=== PATIENT | female | born 1980 | race African-American/Black ===

== ENCOUNTER 2017-10-12 17:23 | Emergency (ER) | payer MEDICAID, MEDICARE ==
--- OUTSIDE RECORDS SUMMARY | 2017-10-12 17:54 | XMS REPORT ---
:1980 External Reference #:[id number] Author Organization [facility] Address [address] [place] [address] Phone [phone] Care Team Providers Name Role Phone HCP given Primary Care Physician Unavailable Payers Type Date Identification Numbers Payment Provider Subscriber Medicare Primary Policy Number: [id number] [facility] Cinthia Ramos Services PayID: [id number] [facility] [address] [place] [address] Medigap Part B Policy Number: [id number] Medicaid Cinthia Ramos PayID: [id number] [place] [address] Problems Date Description Provider Status Onset: 02/28/2015 Neck pain Shukri Clemons D.O. Active Onset: 02/28/2015 Neuralgia Shukri Clemons D.O. Active Onset: 07/12/2015 Chronic pain syndrome Iain Carrillo M.D. Active Onset: 07/12/2015 Generalized anxiety disorder Iain Carrillo M.D. Active Onset: 07/12/2015 Restless legs Iain Carrillo M.D. Active Onset: 07/12/2015 Fibromyalgia Iain Carrillo M.D. Active Onset: 08/10/2017 Gastroesophageal reflux disease Iain Carrillo M.D. Active Family History Date Family Member(s) Problem(s) Comments Mother Diabetes, Type II Mother Obesity Mother High Blood Pressure Mother Thyroid Disease pt unsure of specifics Children 8 7 daughters, 1 son Siblings 4 4 sisters Social History Type Date Description Comments Lives With Children 7 children (no other adults in the home exc for her 19yo daughter) Work Status Disability Social Security on SSD "for my injuries and mental health" since her late 20s (~age 26-29). 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 Cigarette Use 05/27/2016 current cigarette smoker ~1ppd Smoking Patient is a current smoker, smokes every day Sun Exposure Uses sunscreen Seat Belt/Car Seat Seat Belt Use - Yes Currently Active Patient is currently sexually active Allergies, Adverse Reactions, Alerts Date Description Reaction Status Severity Comments 02/26/2015 Penicillins active throat swelling 02/26/2015 Naproxen active hives 02/26/2015 Latex active rash 02/26/2015 Adhesives active rash/burn skin 04/08/2015 Shellfish-derived Products active "my throat closes" 07/22/2016 Benzonatate numbs throat active 09/29/2017 Morphine Urticaria active Medications Medication Date Status Form Strength Qnty SIG Indications Ordering Provider Oxymorphone Active Tablets ER 30mg 60tabs 1 by G89.4 Silcoff, HCL ER 017 12HR mouth Iain, every M.D. 12hrs; for pain G89.4 Oxymorphone HCL 09/29/2017 Active Tablets ER 10mg 30tabs 1 tablet G89.4 [place]ff, ER 12HR daily in the Iain, mid M.D. afternoon; for chronic pain G89.4 Benadryl Allergy 09/28/2017 Active Tablets 25mg as directed Unknown as needed Gabapentin 08/10/2017 Active Capsules 100mg 210cap 2 capsules G25.8 Silcoff, s daily in the 1 Iain, M.D. morning and afternoon, 3 at night; for restless legs and anxiety F41.1 Buspirone HCL 06/11/2017 Active Tablets 15mg 90tabs 1 by mouth F41.1 Silcoff, 3x/day for Iain, anxiety M.D. Cetirizine HCL 04/02/2017 Active Tablets 10mg 30tabs 1 by mouth J30.9 Silcoff, every day as Iain, needed for M.D. allergies Ketotifen 04/02/2017 Active Solution 0.025% 5ml 1 drop both H10.13 Silcoff, Fumarate eyes twice a Iain, day as M.D. needed for eye allergies; doses should be spaced by at least 8 hours Escitalopram 10/05/2016 Active Tablets 20mg 30tabs take 1 F34.1 Silcoff , Oxalate tablet by Iain, mouth once M.D. daily for mood F41.1 Nicotine 07/28/2016 Active Gum 4mg 200units chew 1 F17.210 Silcoff, Polacrilex piece every Iain, 1-2hrs for M.D. 6wks then every 2 to 4 hours x3wks then q4-8h x3wks then d/c; use at least 9/d the 1st 6wks Ventolin HFA 07/23/2016 Active Aerosol 108(90 18gm 2 puffs J20.9 Silcoff, Base) q4-6 hours Iain, mcg/Ac as needed M.D. t Albuterol 07/22/2016 Active Nebulizer (2.5mg 90ml 1 unit J20.9 Silcoff, Sulfate /3ML) inhaled Iain, 0.083% four times M.D. a day as needed for cough or shortness of breath R06.2 Famotidine 02/26/2016 Active Tablets 20mg 60tabs 1 by mouth R14.2 SilcoffIain, 2x/day as M.D. needed for acid reflux R12 K21.9 Opana 03/08/2015 Active Tablets 10mg 120tabs 1 by mouth every 6 G89.4 Iain Carrillo, hours as needed M.D. for pain; rx due 09/11/17; Appt Needed Before Next Refill M79.7 Sumatriptan 02/26/2015 Active Tablets 100mg 6tabs take 1/2-1 G43.109 Silcoff, Succinate tablet by Iain, mouth at M.D. first sign of migraine; may repeat in 2 hours if migraine partially relieved; max 3x/wk Cyclobenzaprine 02/25/2015 Active Tablets 10mg 90tabs 1 by mouth G89.4 Silcoff, HCL three times Iain, a day as M.D. needed for muscle spasms. M79.7 Morphine Sulfate ER Hx Tablets ER 60mg 28tabs 1 by mouth every G89.4 Silcoff 017 - 12 hours for , chronic pain; rx Iain 017 due 12/1/17; take M.D. along with a 30mg pill of same medication Morphine Sulfate ER Hx Tablets ER 30mg 28tabs 1 by mouth every G89.4 Silcoff 017 - 12 hours for , chronic pain; rx Juan R Timmons due 09/24/17; take M.D. along with a 60mg pill of same medication Oxymorphone HCL ER Hx Tablets ER 30mg 60tabs 1 by mouth every M79.7 Silcoff 017 - 12HR 12hrs; for pain; , Rx due 09/22/17 Juan R Timmons M.D. G89.4 Buspirone HCL 02/01/2017 - Hx Tablets 10mg 90tabs 1.5 tablets F41.1 Silcoff, 06/11/2017 by mouth Ely Timmons twice a day; for anxiety Prednisone 07/28/2016 - Hx Tablets 50mg 5tabs 1 pill daily J20.9 Silcoff, 08/02/2016 for 5 days, Ely Timmons for cough and wheezing Escitalopram 07/28/2016 - Hx Tablets 10mg 30tabs 1 tablet F34.1 Silcoff , Oxalate 10/05/2016 daily; for Ely Timmons mood F41.1 Day Time Cough 07/23/2016 - Hx Liquid 15mg/15ML Unknown 10/05/2016 Azithromycin 07/23/2016 - Hx Tablets 250mg 6tab 2 tabs by J20 Hektor, 07/28/2016 s mouth daily .9 LARS De Leon x1 day then 1 tab by mouth daily x4 days Guaifenesin DM 07/23/2016 - Hx Tablets 400-20mg 45ta 1 tab po Q6 J20 Hektor, 10/04/2016 bs hours prn .9 LARS De [place] cough Nicoderm CQ 07/23/2016 - Hx Patches 24HR 14mg/24HR 28un 1 patch top F17 Hektor, 07/23/2016 its daily .21 LARS De Leon 0 Nicotine 05/27/2016 - Hx Patches 24HR 21mg/24HR 42un apply 1 F17 Silcoff, 07/23/2016 its patch, change .21 camille Timmons as 0 M.DEstevan directed; use for 6 weeks then change to 14mg strength PT For Right Hip 05/27/2016 - Hx please M25 Silcoff, Pain 10/04/2016 evaluate and .55 sirena Timmons 1 M.D. instruct in hep, modalities prn Buspirone HCL 03/27/2016 - Hx Tablets 7.5mg 60ta take one F41 Silcoff, 02/01/2017 bs tablet by .1 lawanda Timmons twice a M.D. day for anxiety Buspirone HCL 02/26/2016 - Hx Tablets 5mg 90ta 1 by mouth F41 Silcoff, 03/27/2016 bs twice a day .1 Iain, for anxiety; M.D. increase to 1.5 pills 2x/day after 2wks Gabapentin 01/27/2016 - Hx Capsules 100mg 180c 2 by mouth G25 Silcoff, 08/10/2017 aps 3x/day for .81 Iain restless legs Keena.DEstevan and anxiety F41.1 Replacement Pads 01/27/2016 - Hx G89.4 Silcoff, And Leads For 10/04/2016 Ely Timmons TENS Unit Famotidine 01/27/2016 - Hx Tablets 20mg 60tabs 1 by mouth R14.2 Silcoff , 02/26/2016 2x/day for Ely Timmons acid reflux R12 K21.9 Gabapentin 12/17/2015 - Hx Capsules 300mg 90caps 1 pill 3x/day G25.81 Silcoff, 01/27/2016 for anxiety, Ely Timmons restless legs and sleep F41.1 PT For Right 12/17/2015 - Hx evaluate and M25.561 Silcoff, Knee Pain W/ 03/26/2016 Iain pack M.D. Suspected LCL modalities as Sprain needed, instruct in hep Permethrin 08/26/2015 - Hx Cream 5% 120g apply from L29.9 Silcoff, 09/02/2015 m chin to toesIain M.D. leave on 8-10 hours then rinse off. repeat 1wk later Proair HFA 07/26/2015 - Hx Aerosol 108( 8.50 2 puffs every J20.9 Silcoff, 08/25/2015 90Ba 0gm 4 hours as Ely Timmons se) needed for mcg/ cough, Act wheezing Benzonatate 07/26/2015 - Hx Capsules 200m 15ca 1 by mouth J20.9 Silcoff , 08/02/2015 g ps three times a Ely Timmons day as needed for cough Gabapentin 06/04/2015 - Hx Capsules 100m 180c 2 by mouth G25.81 Silcoff , 12/17/2015 g aps three times a Ely Timmons day for anxiety, sleep, restless legs F41.1 Gabapentin 04/30/2015 - Hx Capsules 100mg 90caps 1 tabs by Laracomelissa, 06/04/2015 mouth three Ely Timmons times a day Gabapentin 04/08/2015 - Hx Capsules 300mg 90caps 1 pill 300.0 Gerardo, 04/30/2015 tonight then 0 Ely Timmons 1 pill twice daily for 1 day then 1 pill 3x/day; for anxiety Opana ER 03/08/2015 - Hx Tab ER 12H 10mg 30tabs 1 by mouth M79.7 Gerardo, 09/22/2017 Abuse-Det every day in Ely Timmons mid afternoon; rx due 09/11/17; Appt Needed Before Next Refill G89.4 Opana 02/25/2015 - 03/08/2015 Hx Tablets 10mg 1 tab by mouth four 338.4 Unknown times a day, as needed 729.1 Opana ER 02/25/2015 - Hx Tab ER 12H Abuse-Det 10mg 1 po bid 729.1 Unknown 03/08/2015 338.4 Opana ER 02/25/2015 - Hx Tab ER 12H 30mg 60tabs 1 by mouth M79.7 Gerardo, 09/20/2017 Abuse-Det twice a day Ely Timmons for chronic pain; Appt Needed Before Next Refill G89.4 Abilify 02/25/2015 - 02/25/2015 Hx Tablets 1 by mouth every day for Unknown mood Medications Administered in Office Medication Date Status Form Strength Qnty SIG Indications Ordering Provider Toradol 15MG. Administered Injection Sopchak, 015 Shukri, D.O. SC/Im Administered Injection Sopchak, Injections 015 Shukri, D.O. Immunizations CPT Code Status Date Vaccine Lot # [id number] Given 09/22/2017 MMR Virus Immunization [id number] Given 08/10/2017 Influenza Virus Vaccine, Quadrivalent, Split, [id number] Preservative Free [id number] Given 08/26/2015 Influenza Virus Vaccine, Quadrivalent, Split, [id number] Preservative Free 03245 Given 02/28/2015 Adacel or Boostrix, TDaP [id number] Vital Signs Date Vital Result Comment 09/29/2017 BP Systolic 102 mmHg BP Diastolic 64 mmHg Height 69 inches 5'9" Weight 197.00 lb BMI (Body Mass Index) 29.1 kg/m2 09/22/2017 BP Systolic 110 mmHg BP Diastolic 68 mmHg Weight 200.00 lb with shoes 08/10/2017 BP Systolic 100 mmHg BP Diastolic 60 mmHg Weight 193.00 lb 06/11/2017 BP Systolic 106 mmHg BP Diastolic 60 mmHg Heart Rate 88 /min reg Weight 186.00 lb 04/02/2017 BP Systolic 108 mmHg BP Diastolic 70 mmHg Height 69.75 inches 5'9.75" w/shoes Weight 180.00 lb w/shoes BMI (Body Mass Index) 26.0 kg/m2 02/01/2017 BP Systolic 126 mmHg BP Diastolic 68 mmHg Weight 183.00 lb 12/08/2016 BP Systolic 100 mmHg BP Diastolic 65 mmHg Body Temperature 98.3 F Weight 180.00 lb 10/05/2016 BP Systolic 108 mmHg BP Diastolic 80 mmHg Weight 181.00 lb 07/28/2016 BP Systolic 100 mmHg BP Diastolic 60 mmHg Body Temperature 97.9 F Weight 182.00 lb w/shoes 07/23/2016 BP Systolic 90 mmHg BP Diastolic 72 mmHg Height 69.25 inches 5'9.25" Weight 182.00 lb BMI (Body Mass Index) 26.7 kg/m2 05/27/2016 BP Systolic 118 mmHg BP Diastolic 70 mmHg Weight 181.00 lb 03/27/2016 BP Systolic 100 mmHg BP Diastolic 70 mmHg Weight 178.00 lb 02/26/2016 BP Systolic 100 mmHg BP Diastolic 62 mmHg Weight 177.00 lb with sneakers 01/27/2016 BP Systolic 100 mmHg BP Diastolic 64 mmHg Weight 178.00 lb w/shoes Last Menstrual Period [id number] 12/27/2015 BP Systolic 107 mmHg BP Diastolic 77 mmHg Heart Rate 111 /min Height 68 inches 5'8" Weight 176.00 lb BMI (Body Mass Index) 26.8 kg/m2 12/17/2015 BP Systolic 114 mmHg BP Diastolic 70 mmHg Weight 170.00 lb 10/30/2015 BP Systolic 102 mmHg BP Diastolic 56 mmHg Weight 170.00 lb with shoes 09/25/2015 BP Systolic 108 mmHg BP Diastolic 68 mmHg Weight 168.00 lb w/shoes 08/26/2015 BP Systolic 94 mmHg BP Diastolic 54 mmHg Weight 166.00 lb 07/26/2015 Heart Rate 76 /min reg Respiratory Rate 14 /min not laboured Body Temperature 98.6 F Weight 163.00 lb 07/12/2015 BP Systolic 100 mmHg BP Diastolic 62 mmHg Weight 160.00 lb 07/05/2015 BP Systolic 96 mmHg BP Diastolic 64 mmHg Weight 164.00 lb 06/04/2015 BP Systolic 106 mmHg BP Diastolic 64 mmHg Weight 163.00 lb shoes on 05/07/2015 BP Systolic 100 mmHg BP Diastolic 80 mmHg Height 69.25 inches 5'9.25" with shoes Weight 156.50 lb with shoes BMI (Body Mass Index) 22.9 kg/m2 04/08/2015 BP Systolic 102 mmHg BP Diastolic 78 mmHg Weight 153.00 lb 03/08/2015 BP Systolic 112 mmHg BP Diastolic 70 mmHg 02/28/2015 BP Systolic 126 mmHg BP Diastolic 76 mmHg 02/26/2015 BP Systolic 116 mmHg BP Diastolic 60 mmHg Height 68 inches 5'8" Weight 156.00 lb BMI (Body Mass Index) 23.7 kg/m2 Results Test Date Test Result H/L Range Note Urine Drug Screen Inhouse 04/02/2017 Ua Cocaine - Ua Opiates - Ua Amphetamines - Urine Methanphetamines - Urine Benzodiazepines QN [place] - Urine Oxycodone QL + Laboratory test finding 06/25/2016 Troponin-I < 0.015 ng/mL 1, 2 Laboratory test finding 06/25/2016 Troponin-I < 0.015 ng/mL 1, 3 Urine Drug Screen Inhouse 05/27/2016 Ua Cocaine - Ua Opiates - Ua Amphetamines - Urine Methanphetamines - Urine Benzodiazepines QN [place] - Urine Oxycodone QL + Laboratory test finding 02/26/2016 Cytology SEE RESULT BELOW 4 Human Papilloma Virus Rna Negative Negative 5 Urine Drug Screen Inhouse 01/27/2016 Ua Cocaine - Ua Opiates - Ua Amphetamines - Urine Methanphetamines - Urine Benzodiazepines QN [place] - Urine Oxycodone QL + Urine Drug Screen Inhouse 12/17/2015 Ua Cocaine - Ua Opiates - Ua Amphetamines - Urine Methanphetamines - Urine Benzodiazepines QN [place] - Urine Oxycodone QL - Urine Drug Screen Inhouse 10/30/2015 Ua Cocaine _ Ua Opiates _ Ua Amphetamines _ Urine Methanphetamines _ Urine Benzodiazepines QN [place] _ Urine Oxycodone QL _ Urine Drug Screen Inhouse 09/25/2015 Ua Cocaine - Ua Opiates - Ua Amphetamines - Urine Methanphetamines - Urine Benzodiazepines QN [place] - Urine Oxycodone QL + Urine Drug Screen Inhouse 09/10/2015 Ua Cocaine neg Ua Opiates neg Ua Amphetamines neg Urine Methanphetamines neg Urine Benzodiazepines QN [place] neg Urine Oxycodone QL pos Urine Drug Screen Inhouse 07/12/2015 Ua Cocaine - Ua Opiates - Ua Amphetamines - Urine Methanphetamines - Urine Benzodiazepines QN [place] - Urine Oxycodone QL + Urine Drug Screen Inhouse 07/05/2015 Ua Cocaine - Ua Opiates - Ua Amphetamines - Urine Methanphetamines - Urine Benzodiazepines QN [place] - Urine Oxycodone QL + Urinalysis With Microscopic 06/15/2015 Urine Color YELLOW Yellow Urine Clarity CLEAR Clear Urine Glucose - Dipstick NEGATIVE mg/dL Negative Urine Bilirubin - Dipstick NEGATIVE Negative Urine Ketone NEGATIVE mg/dL Negative Urine Specific [place] 1.010 1.010-1.030 Urine Blood MODERATE High Negative Urine PH 6.0 Low 6.5-7.5 Urine Protein - Dipstick NEGATIVE mg/dL Negative Urine Urobilinogen - Dipstick 0.2 E.U./dL 0.2-1.0 Urine Nitrite - Dipstick NEGATIVE Negative Urine Leuk Esterase NEGATIVE Negative Urine RBC 0-2 rbc/hpf 0-2 Urine WBC NONE SEEN wbc/hpf 0-7 Urine Epithelial Cells FEW NONESEEN/lpf Laboratory test finding 06/15/2015 Urine Screen See Note 6 Drugs Of Abuse-Urine Screen 7 06/15/2015 Amphetamines (Urine) Negative Barbiturates (Urine) Negative Benzodiazepines (Urine) Negative Cannabinoids (Urine) POSITIVE High Cocaine Metabolite (Urine) Negative Methadone (Urine) Negative Opiates (Urine) Negative Urine Cutoffs * 7 Comprehensive Metabolic Panel 06/15/2015 Glucose 90 mg/dL 74-106 BUN 7 mg/dL 7-18 Creatinine 0.7 mg/dL 0.6-1.3 Glom Filtration Rate, Estimate >60 mL/min >60 If >60 mL/min >60 8 BUN/Creat 10.0 ratio Sodium 139 mmol/L 136-145 Potassium 3.5 mmol/L 3.5-5.1 Chloride 106 mmol/L 98-107 Carbon Dioxide 24 mmol/L 21-32 Anion Gap 9 mEq/L 8-16 Calcium 8.6 mg/dL 8.5-10.1 Total Protein 7.4 g/dL 6.4-8.2 Albumin 3.4 g/dL 3.4-5.0 Globulin 4.0 g/dL 1.9-4.3 Alb/Glob 0.9 ratio Bilirubin,Total 0.3 mg/dL 0.2-1.0 Sgot/Ast 8 U/L Low 15-37 9 SGPT/Alt 16 U/L 12-78 Alkaline Phosphatase 53 U/L 45-117 Laboratory test finding 06/15/2015 CK 110 U/L 26-192 Troponin-I < 0.015 ng/mL 10 HCG,Serum (Qualitative) NEGATIVE (Negative) CBC W/Automated Diff 06/15/2015 White Blood Count 8.7 K/uL 3.1-10.7 Red Blood Count 4.49 M/uL 3.90-5.40 Hemoglobin 12.5 gm/dL 11.6-15.8 Hematocrit 37.7 % 36.0-46.1 Mean Cell Volume 84.0 fl 80.9-99.0 Mean Corpuscular HGB 27.8 pg 25.9-32.7 Mean Corpuscular HGB Conc 33.2 g/dL 30.8-34.3 Platelet Count 272 K/uL 155-360 Red Cell Distri Width SD 43.7 fl 3-47 Red Cell Distri Width %CV 14.5 % High 11.7-14.4 Mean Platelet Volume 9.8 fL 8.9-12.4 Neut% 59.8 % 40.4-72.8 Lymph % 31.1 % 17.0-46.1 Storey % 6.1 % 4.3-13.2 Eo% 2.5 % 0.0-6.6 Bas% 0.5 % 0.0-1.1 Neut# 5.17 K/uL 1.0-7.0 Lymph # 2.69 K/uL 1.8-7.0 Storey # 0.53 K/uL 0.3-0.9 Eos # 0.22 K/uL 0.0-0.5 Baso # 0.04 K/uL 0.0-0.1 Protime 06/15/2015 Protime 12.8 seconds 12.1-14.9 Inr 0.9 0.9-1.1 11 Laboratory test finding 06/15/2015 Act Partial Thrombo 28.4 seconds 23.9- 34.3 12 Time Urine Drug Screen Inhouse 06/04/2015 Ua Cocaine - Ua Opiates - Ua Amphetamines - Urine Methanphetamines - Urine Benzodiazepines QN [place] - Urine Oxycodone QL + Urine Drug Screen Inhouse 05/07/2015 Ua Cocaine - Ua Opiates - Ua Amphetamines - Urine Methanphetamines - Urine Benzodiazepines QN [place] - Urine Oxycodone QL + Laboratory test finding 02/26/2015 Erythrocyte Sed Rate 24 mm/Hr High 0- 14 C Reactive Protein 1.06 mg/L < 5.00 13 Comp Metabolic Panel 02/26/2015 Sodium 136 mmol/L 133-145 Potassium 4.3 mmol/L 3.5-5.0 Chloride 107 mmol/L 101-111 Co2 Carbon Dioxide 26 mmol/L 22-32 Anion Gap 3 mmol/L 2-11 Glucose 83 mg/dL 70-100 Blood Urea Nitrogen 9 mg/dL 6-24 Creatinine 0.58 mg/dL 0.51-0.95 BUN/Creatinine Ratio 15.5 8-20 Calcium 8.9 mg/dL 8.6-10.3 Total Protein 6.8 g/dL 6.4-8.9 Albumin 4.1 g/dL 3.2-5.2 Globulin 2.7 g/dL 2-4 Albumin/Globulin Ratio 1.5 1-3 Total Bilirubin 0.40 mg/dL 0.2-1.0 Alkaline Phosphatase 39 U/L 34-104 Alt 6 U/L Low 7-52 Ast 9 U/L Low 13-39 Egfr Non- 117.6 >60 Egfr 151.3 >60 14 Iron & Iron Binding Capacity 02/26/2015 Iron 88 g/dL 50-212 Unsaturated Iron Binding 259 g/dL Total Iron Binding Capacity 347 g/dL 250-450 % Iron Saturation 25 % 15-55 Laboratory test finding 02/26/2015 Ferritin 16.8 ng/mL 11-307 CBC Auto Diff 02/26/2015 White Blood Count 6.6 10^3/uL 4.8-10.8 Red Blood Count 4.66 10^6/uL 4.0-5.4 Hemoglobin 13.4 g/dL 12.0-16.0 Hematocrit 41 % 35-47 Mean Corpuscular Volume 87 fL 80-97 Mean Corpuscular Hemoglobin 29 pg 27-31 Mean Corpuscular HGB Conc 33 g/dL 31-36 Red Cell Distribution Width 14 % 10.5-15 Platelet Count 196 10^3/uL 150-450 Mean Platelet Volume 9 um3 7.4-10.4 Abs Neutrophils 4.0 10^3/uL 1.5-7.7 Abs Lymphocytes 2.1 10^3/uL 1.0-4.8 Abs Monocytes 0.4 10^3/uL 0-0.8 Abs Eosinophils 0.1 10^3/uL 0-0.6 Abs Basophils 0 10^3/uL 0-0.2 Abs Nucleated RBC 0.01 10^3/uL Granulocyte % 60.7 % 38-83 Lymphocyte % 31.1 % 25-47 Monocyte % 5.8 % 1-9 Eosinophil % 2.0 % 0-6 Basophil % 0.4 % 0-2 Nucleated Red Blood Cells % 0.1 Laboratory test finding 02/26/2015 TSH (Thyroid Stimulating 1.33 IU/mL 0.34-5.60 Horm) 1 CP 2 0.0 - 0.045 ng/mL: Normal 0.046 - 0.5 ng/mL: Suggestive 0.6 - 1.5 ng/mL: Consistent 3 0.0 - 0.045 ng/mL: Normal 0.046 - 0.5 ng/mL: Suggestive 0.6 - 1.5 ng/mL: Consistent 4 SEE RESULT BELOW Name: CINTHIA RAMOS : [address]: Iain Carrillo MD Acct: [id number] Unit: [id number] AGE: 35 Location: [facility] Re02/26/16 SEX: F Status: REG REF SPEC: [id number] YULIA: 02/26/16-[address]: Iain Carrillo MD REQ: [id number] RECD: 02/26/16 STATUS: SOUT _ ORDERED: IMAGE ANALYSIS, HPV/Thin Prep COMMENTS: [id number] FINAL DIAGNOSIS Negative for Intraepithelial lesion or Malignancy A. Ectocervical/Endocervical Specimen Adequacy: Satisfactory of evaluation Transformation zone component identified Patient Information: HPV: High risk HPV RNA testing regardless of pap results. Actual Specimen Date: 02/26/16 ?: N Post Menopausal?: N Hysterectomy?: N Date Time Test Result Flag (u) Normal Range 02/26/16 1353 HPV RNA Negative Negative The high-risk HPV types detected by the assay include: 16, 18, 31, 33, 35, 39, 45, 51, 52, 56, 58, 59, 66, and 68. Signed (signature on file) FLORY Escalera(ASCP) 02/26 1502 This Pap test was evaluated with the assistance of the SavorPrep Test Imaging System. Due to cytologic findings at the gas usage meter clerk microscope, comprehensive manual rescreening by a Dictating Transcribing Machine Servicer may be required. The Pap Smear is a screening test designed to aid in the detection of premalignant and malignant conditions of the uterine cervix. It is not a diagnostic procedure and should not be used as the sole means of detecting cervical cancer. Both false- positive and false- negative reports do occur. Depending on your risk status, a Pap smear should be obtained and evaluated every 1-3 years. END OF REPORT * ML=Testing performed at Main Lab DEPARTMENT OF PATHOLOGY, [address] [place] [address] Armando Roa M.D. Director [facility] # [id number] 5 The high-risk HPV types detected by the assay include: 16, 18, 31, 33, 35, 39, 45, 51, 52, 56, 58, 59, 66, and 68. 6 06/15/15 LAB.[facility] Deleted by [facility] 7 URINE SPECIMENS ARE SCREENED AT THE LISTED CUTOFFS DRUG CLASS INITIAL TEST LEVEL Amphetamines 1000 ng/mL Barbiturates 200 ng/mL Benzodiazepines 200 ng/mL Cannabinoids 50 ng/mL Cocaine Metabolite 300 ng/mL Methadone 300 ng/mL Opiates 300 ng/mL Any POSITIVE findings are UNCONFIRMED. Confirmatory testing is suggested if findings are unexpected. Please contact laboratory if confirmatory testing is desired. SPECIMENS ARE HELD FOR 72 HOURS. 8 Note: Persistent reduction for 3 months or more in an eGFR <60 mL/min/1.73 m2 defines CKD. Patients with eGFR values >/=60 mL/min/1.73 m2 may also have CKD if evidence of persistent proteinuria is present. The original MDRD equation for estimated GFR is not valid for patients less than 18 years of age. Additional information may be found at www.kdoqi.org. 9 Values below the stated reference ranges of AST and ALT can be seen in normal populations. Clinical correlation is suggested. 10 0.0 - 0.045 ng/mL: Normal 0.046 - 0.5 ng/mL: Suggestive 0.6 - 1.5 ng/mL: Consistent 11 THERAPEUTIC INR RANGE: 2.0 - 3.0 DVT, Pulmonary embolus, prophylaxis against venous thrombosis or systemic embolization in high risk patients. 2.5 - 3.5 Mechanical heart valves 12 Is patient on anticoagulants? Coumadin QUERY: Anticoagulant Therapy? QUERY: Date of Last Dose: QUERY: Time of Last Dose: 13 Acute inflammation: >10.00 14 Because ethnic data is not always readily available, this report includes an eGFR for both -Americans and non- Americans. The National Kidney Disease Education Program (NKDEP) does not endorse the use of the MDRD equation for patients that are not between the ages of 18 and 70, are , have extremes of body size, muscle mass, or nutritional status, or are non- or non-. According to the National Kidney Foundation, irrespective of diagnosis, the stage of the disease is based on the level of kidney function: Stage Description GFR(mL/min/1.73 m(2)) 1 Kidney damage with normal or decreased GFR 90 2 Kidney damage with mild decrease in GFR 60-89 3 Moderate decrease in GFR 30-59 4 Severe decrease in GFR 15-29 5 Kidney failure <15 (or dialysis) Procedures Date CPT Code Description Status 02/28/2015 20408 SC/Im Injections Completed Encounters Type Date Location Provider CPT E/M Dx Office Visit 09/29/2017 10:15a Main Office Iain Carrillo M.D. 15321 G89.4 Z79.891 L50.8 T40.2x5A Office Visit 09/22/2017 3:30p Main Office Iain Carrillo M.D. 93149 G89.4 Z79.891 M79.7 Z23 Z71.89 Office Visit 08/10/2017 4:45p Main Office Iain Carrillo M.D. 50278 G89.4 Z79.891 M79.7 F41.1 F34.1 G25.81 L81.9 K21.9 Z23 Office Visit 06/11/2017 2:00p Main Office Iain Carrillo M.D. 48285 G89.4 Z79.891 M79.7 F41.1 F34.1 Office Visit 04/02/2017 10:15a Main Office Iain Carrillo M.D. 12541 G89.4 Z79.891 M79.7 F41.1 F34.1 G25.81 J30.9 H10.13 Office Visit 02/01/2017 2:30p Main Office Iain Carrillo M.D. 90828 G89.4 Z79.891 M79.7 F41.1 F34.1 G25.81 Office Visit 12/08/2016 1:30p Main Office Iain Carrillo M.D. 86149 G89.4 F41.1 F34.1 M79.7 Z79.891 G25.81 A09 L65.9 Office Visit 10/05/2016 11:15a Main Office Iain Carrillo M.D. 95541 F34.1 F41.1 G89.4 M79.7 Z79.891 Office Visit 07/28/2016 9:45a Main Office Iain Carrillo M.D. 58479 L29.0 G89.4 M79.7 G25.81 J20.9 R06.2 F34.1 F41.1 F17.210 Office Visit 07/23/2016 1:15p [place] [address] R06.2 F17.210 J20.9 Office Visit 05/27/2016 10:15a Main Office Iain Carrillo M.D. 78446 G89.4 M25.551 G25.81 M79.7 G47.00 Z79.891 F17.210 Z71.6 Office Visit 03/27/2016 2:30p Main Office Iain Carrillo M.D. 06587 G89.4 M79.7 G25.81 F41.1 G47.00 Z79.891 Office Visit 02/26/2016 10:15a Main Office Iain Carrillo M.D. 40609 G89.4 M79.7 G25.81 F41.1 R53.83 G47.00 K21.9 Z79.891 Z01.419 Z12.4 Office Visit 01/27/2016 10:45a Main Office Iain Carrillo M.D. 28200 G89.4 M79.7 G25.81 F41.1 R53.83 R14.2 R12 M25.561 Z79.891 Office Visit 12/17/2015 8:45a Main Office Iain Carrillo M.D. 98547 G89.4 M25.561 S83.421A M79.7 G25.81 F41.1 Office Visit 10/30/2015 4:15p Main Office Iain Carrillo M.D. 59097 G89.4 M79.7 G25.81 F41.1 H53.8 Office Visit 09/25/2015 11:30a Main Office Iain Carrillo M.D. 94914 G89.4 M79.7 G25.81 F41.1 Z79.891 Office Visit 08/26/2015 2:30p Main Office Iain Carrillo M.D. 13440 G89.4 Z79.891 F41.1 G25.81 M79.7 L29.9 Z23 Z41.8 Office Visit 07/26/2015 10:30a Main Office Iain Carrillo M.D. 40518 G89.4 Z79.891 F41.1 G25.81 M79.7 J20.9 Office Visit 07/12/2015 11:15a Main Office Iain Carrillo M.D. 56301 G89.4 Z79.891 F41.1 G25.81 M79.7 Office Visit 07/05/2015 2:30p Main Office aIin Carrillo M.D. 11778 G89.4 Z79.891 Office Visit 06/04/2015 11:15a Main Office Iain Carrillo M.D. 50019 338.4 V58.69 346.00 742.9 Office Visit 05/07/2015 11:30a Main Office Iain Carrillo M.D. 89651 338.4 784.2 709.9 346.00 V58.69 Office Visit 04/08/2015 1:15p Main Office Iain Carrillo M.D. 51369 338.4 729.1 719.46 346.00 300.00 Office Visit 03/08/2015 9:30a Main Office Iain Carrillo M.D. 36737 729.1 338.4 723.1 719.46 Office Visit 02/28/2015 9:30a Main Office Shukri Clemons D.O. 65149 723.1 729.1 729.2 v06.1 v07.2 728.85 Office Visit 02/26/2015 2:00p Main Office Iain Carrillo M.D. 76038 338.4 729.1 346.00 246.9 333.94 729.2 Plan of Care Future Appointment(s):10/20/2017 1:30 pm - Nurse's Schedule at Main Agjnnc4310/20 1:30 pm - Iain Carrillo M.D. at Main Clfgsv0310/08/2017 1:30 pm - Iain Carrillo M.D. at Main Tcbigq3310/05/2017 2:30 pm - Iain Carrillo M.D. at Main Cytqkb4709/29/2017 - Iain Carrillo M.D.G89.4 Chronic pain syndromeNew Medication:Oxymorphone HCL ER 30 mgOxymorphone HCL ER 10 mgComments:She is intolerant to the only covered long acting opioid on her formulary. Will therefore request PAfor oxymorphone wc worked well for her in the past and was well tolerated.I counted her morphine tabs. She filled both Rxs on 09/24 (day she started them). Has 18 tabs left of the 60mg pills and 19 of the 30mg pills. She is going to continue to take morphine while awaiting PA for oxymorphone, will continue Benadryl along w/ it to try and control the adverse effects. 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
--- OUTSIDE RECORDS SUMMARY | 2017-10-12 17:56 | XMS REPORT ---
:1980 External Reference #:[id number] Author Organization [facility] Address [address] [place] [address] Phone [phone] Care Team Providers Name Role Phone HCP given Primary Care Physician Unavailable Payers Type Date Identification Numbers Payment Provider Subscriber Medicare Primary Policy Number: [id number] [facility] Margaret Ramos Services PayID: [id number] [facility] [address] [place] [address] Medigap Part B Policy Number: [id number] Medicaid Margaret Ramos PayID: [id number] [address] [place] [address] Problems Date Description Provider Status Onset: 02/28/2015 [...] (~age 28-29). 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 chronic pain; rx due 09/24/17; take along with a 30mg pill of same medication Morphine 09/22/ Active Tablets ER 30mg 28tabs 1 by mouth G89.4 Silcoff, Sulfate ER 2016 every 12 Iain, hours for M.D. chronic pain; rx due 09/24/17; take along with a 60mg pill of same medication Gabapentin 08/10/ Active Capsules 100mg 210cap 2 capsules G25.81 Silcoff, 2017 s daily in the Iain, morning and M.D. afternoon, 3 at night; for restless legs [...] Tablets 20mg 60tabs 1 by mouth R14.2 Silcoff, Iain, 2x/day as M.D. needed for acid reflux [...] as M.D. needed for muscle spasms. M79.7 Oxymorphone HCL ER Hx Tablets ER 12HR 30mg 60tabs 1 by mouth M79.7 Silcoff, 7 - every 12hrs; Iain for pain; Rx M.D. 7 due 09/22/17 G89.4 Buspirone HCL 02/01/2017 - Hx Tablets [...] patch, change .21 camille Timmons as 0 M.D. directed; use for 6 weeks then change to 14mg strength PT For Right Hip 05/27/2016 - Hx please M25 Silcoff, Pain 10/04/2016 evaluate and .55 Iain treat, 1 M.DEstevan instruct in hep, modalities prn Buspirone HCL 03/27/2016 - Hx Tablets 7.5mg 60ta take one F41 Silcoff, 02/01/2017 bs tablet by .1 lawanda Timmons twice a M.D. day for anxiety Buspirone HCL 02/26/2016 - Hx Tablets 5mg 90ta 1 by mouth F41 Silcoff, 03/27/2016 bs twice a day .1 Iain for anxiety; M.D. increase to 1.5 pills 2x/day after 2wks Gabapentin 01/27/2016 - Hx Capsules 100mg 180c 2 by mouth G25 Silcoff, 08/10/2017 aps 3x/day for .81 sloane Timmons M.D. and anxiety F41.1 Replacement Pads 01/27/2016 - [...] and M25.561 Silcoff, Knee Pain W/ 03/26/2016 treatIain M.D. Suspected LCL modalities as Sprain needed, [...] Hx Capsules 100mg 90caps 1 tabs by Silcoff, 06/04/2015 mouth three Ely Timmons times a day Gabapentin 04/08/2015 - Hx Capsules 300mg 90caps 1 pill 300.0 Silcoff, 04/30/2015 tonight then 0 Ely Timmons 1 pill twice daily for 1 day then 1 pill 3x/day; for anxiety Opana ER 03/08/2015 - Hx Tab ER 12H 10mg 30tabs 1 by mouth M79.7 Silcoff, 09/22/2017 Abuse-Det every day in Ely Timmons [...] 12H 30mg 60tabs 1 by mouth M79.7 Laracomelissa, 09/20/2017 Abuse-Det twice a day Ely Timmons [...] CPT Code Status Date Vaccine Lot # [id number] Given 09/22/2017 MMR Virus Immunization [id number] Given 08/10/2017 Influenza Virus Vaccine, Quadrivalent, Split, [id number] Preservative Free 02888 Given 08/26/2015 Influenza Virus Vaccine, Quadrivalent, Split, [id number] Preservative Free [id number] Given 02/28/2015 Adacel or Boostrix, TDaP [id number] Vital Signs Date Vital Result Comment 09/22/2017 BP Systolic 110 mmHg BP Diastolic [...] Weight 178.00 lb w/shoes Last Menstrual Period [id number] 12/27/2015 BP Systolic 107 mmHg BP Diastolic [...] - Urine Methanphetamines - Urine Benzodiazepines QN [place] - Urine Oxycodone QL + Laboratory test finding 06/25/2016 Troponin-I < 0.015 ng/mL 1, 2 Laboratory test finding 06/25/2016 Troponin-I < 0.015 ng/mL 1, 3 Urine Drug Screen Inhouse 05/27/2016 Ua Cocaine - Ua Opiates - Ua Amphetamines - Urine Methanphetamines - Urine Benzodiazepines QN [place] - Urine Oxycodone QL + Laboratory test finding 02/26/2016 Cytology SEE RESULT BELOW 4 Human Papilloma Virus Rna Negative Negative 5 Urine Drug Screen Inhouse 01/27/2016 Ua Cocaine - Ua Opiates - Ua Amphetamines - Urine Methanphetamines - Urine Benzodiazepines QN [place] - Urine Oxycodone QL + Urine Drug Screen Inhouse 12/17/2015 Ua Cocaine - Ua Opiates - Ua Amphetamines - Urine Methanphetamines - Urine Benzodiazepines QN [place] - Urine Oxycodone QL - Urine Drug Screen Inhouse 10/30/2015 Ua Cocaine _ Ua Opiates _ Ua Amphetamines _ Urine Methanphetamines _ Urine Benzodiazepines QN [place] _ Urine Oxycodone QL _ Urine Drug Screen Inhouse 09/25/2015 Ua Cocaine - Ua Opiates - Ua Amphetamines - Urine Methanphetamines - Urine Benzodiazepines QN [place] - Urine Oxycodone QL + Urine Drug Screen Inhouse 09/10/2015 Ua Cocaine neg Ua Opiates neg Ua Amphetamines neg Urine Methanphetamines neg Urine Benzodiazepines QN [place] neg Urine Oxycodone QL pos Urine Drug Screen Inhouse 07/12/2015 Ua Cocaine - Ua Opiates - Ua Amphetamines - Urine Methanphetamines - Urine Benzodiazepines QN [place] - Urine Oxycodone QL + Urine Drug Screen Inhouse 07/05/2015 Ua Cocaine - Ua Opiates - Ua Amphetamines - Urine Methanphetamines - Urine Benzodiazepines QN [place] - Urine Oxycodone QL + Urinalysis With Microscopic 06/15/2015 Urine Color YELLOW Yellow Urine Clarity CLEAR Clear Urine Glucose - Dipstick NEGATIVE mg/dL Negative Urine Bilirubin - Dipstick NEGATIVE Negative Urine Ketone NEGATIVE mg/dL Negative Urine Specific [place] 1.010 1.010-1.030 Urine Blood MODERATE High Negative [...] % 40.4-72.8 Lymph % 31.1 % 17.0-46.1 [place] % 6.1 % 4.3-13.2 Eo% 2.5 % 0.0-6.6 Bas% 0.5 % 0.0-1.1 Neut# 5.17 K/uL 1.0-7.0 Lymph # 2.69 K/uL 1.8-7.0 [place] # 0.53 K/uL 0.3-0.9 Eos # 0.22 K/uL 0.0-0.5 Baso # 0.04 K/uL 0.0-0.1 Protime 06/15/2015 Protime 12.8 seconds 12.1-14.9 Inr 0.9 0.9-1.1 11 Laboratory test finding 06/15/2015 Act Partial Thrombo 28.4 seconds 23.9- 34.3 12 Time Urine Drug Screen Inhouse 06/04/2015 Ua Cocaine - Ua Opiates - Ua Amphetamines - Urine Methanphetamines - Urine Benzodiazepines QN [place] - Urine Oxycodone QL + Urine Drug Screen Inhouse 05/07/2015 Ua Cocaine - Ua Opiates - Ua Amphetamines - Urine Methanphetamines - Urine Benzodiazepines QN [place] - Urine Oxycodone QL + Laboratory test [...] ng/mL: Consistent 4 SEE RESULT BELOW Name: MARGARET RAMOS : [address]: Iain Carrillo MD Acct: [id number] Unit: [id number] AGE: 35 Location: [facility] Re02/26/16 SEX: F Status: REG REF SPEC: [id number] YULIA: 02/26/16-[address]: Iain Carrillo MD REQ: [id number] RECD: 02/26/167545 STATUS: SOUT _ ORDERED: IMAGE ANALYSIS, HPV/Thin Prep COMMENTS: [id number] FINAL DIAGNOSIS Negative for Intraepithelial lesion or [...] was evaluated with the assistance of the ThinPrep Test Imaging System. Due to cytologic findings at the maintenance department manager microscope, comprehensive manual rescreening by a Transit Manager may be required. The Pap Smear is [...] performed at Main Lab DEPARTMENT OF PATHOLOGY, [address] [place] [address] Armando Roa M.D. Director [facility] # [id number] 5 The high-risk HPV types detected by the assay include: 16, 18, 31, 33, 35, 39, 45, 51, 52, 56, 58, 59, 66, and 68. 6 06/15/15 [facility] Deleted by [facility] 7 URINE SPECIMENS ARE SCREENED AT THE [...] Procedures Date CPT Code Description Status 02/28/2015 88480 SC/Im Injections Completed Encounters Type Date Location Provider CPT E/M Dx Office Visit 09/22/2017 3:30p Main Office Iain Carrillo M.D. 05680 G89.4 Z79.891 M79.7 Z23 Office Visit 08/10/2017 4:45p Main Office Iain Carrillo M.D. 06288 G89.4 Z79.891 M79.7 F41.1 F34.1 G25.81 L81.9 K21.9 Z23 Office Visit 06/11/2017 2:00p Main Office Iain Carrillo M.D. 98499 G89.4 Z79.891 M79.7 F41.1 F34.1 Office Visit 04/02/2017 10:15a Main Office Iain Carrillo M.D. 65983 G89.4 Z79.891 M79.7 F41.1 F34.1 G25.81 J30.9 H10.13 Office Visit 02/01/2017 2:30p Main Office Iain Carrillo M.D. 44458 G89.4 Z79.891 M79.7 F41.1 F34.1 G25.81 Office Visit 12/08/2016 1:30p Main Office Iain Carrillo M.D. 40666 G89.4 F41.1 F34.1 M79.7 Z79.891 G25.81 A09 L65.9 Office Visit 10/05/2016 11:15a Main Office Iain Carrillo M.D. 74979 F34.1 F41.1 G89.4 M79.7 Z79.891 Office Visit 07/28/2016 9:45a Main Office Iain Carrillo M.D. 02726 L29.0 G89.4 M79.7 G25.81 J20.9 R06.2 F34.1 F41.1 F17.210 Office Visit 07/23/2016 1:15p [place] [address] R06.2 F17.210 J20.9 Office Visit 05/27/2016 10:15a Main Office Iain Carrillo M.D. 67810 G89.4 M25.551 G25.81 M79.7 G47.00 Z79.891 F17.210 Z71.6 Office Visit 03/27/2016 2:30p Main Office Iain Carrillo M.D. 49347 G89.4 M79.7 G25.81 F41.1 G47.00 Z79.891 Office Visit 02/26/2016 10:15a Main Office Iain Carrillo M.D. 01504 G89.4 M79.7 G25.81 F41.1 R53.83 G47.00 K21.9 Z79.891 Z01.419 Z12.4 Office Visit 01/27/2016 10:45a Main Office Iain Carrillo M.D. 79695 G89.4 M79.7 G25.81 F41.1 R53.83 R14.2 R12 M25.561 Z79.891 Office Visit 12/17/2015 8:45a Main Office Iain Carrillo M.D. 69373 G89.4 M25.561 S83.421A M79.7 G25.81 F41.1 Office Visit 10/30/2015 4:15p Main Office Iain Carrillo M.D. 31491 G89.4 M79.7 G25.81 F41.1 H53.8 Office Visit 09/25/2015 11:30a Main Office Iain Carrillo M.D. 18203 G89.4 M79.7 G25.81 F41.1 Z79.891 Office Visit 08/26/2015 2:30p Main Office Iain Carrillo M.D. 42372 G89.4 Z79.891 F41.1 G25.81 M79.7 L29.9 Z23 Z41.8 Office Visit 07/26/2015 10:30a Main Office Iain Carrillo M.D. 01297 G89.4 Z79.891 F41.1 G25.81 M79.7 J20.9 Office Visit 07/12/2015 11:15a Main Office Iain Carrillo M.D. 62977 G89.4 Z79.891 F41.1 G25.81 M79.7 Office Visit 07/05/2015 2:30p Main Office Iain Carrillo M.D. 94799 G89.4 Z79.891 Office Visit 06/04/2015 11:15a Main Office Iain Carrillo M.D. 18787 338.4 V58.69 346.00 742.9 Office Visit 05/07/2015 11:30a Main Office Iain Carrillo M.D. 61787 338.4 784.2 709.9 346.00 V58.69 Office Visit 04/08/2015 1:15p Main Office Iain Carrillo M.D. 60190 338.4 729.1 719.46 346.00 300.00 Office Visit 03/08/2015 9:30a Main Office Iain Carrillo M.D. 47637 729.1 338.4 723.1 719.46 Office Visit 02/28/2015 9:30a Main Office Shukri Clemons D.O. 83676 723.1 729.1 729.2 v06.1 v07.2 728.85 Office Visit 02/26/2015 2:00p Main Office Iain Carrillo M.D. 38829 338.4 729.1 346.00 246.9 333.94 729.2 Plan of Care Future Appointment(s):10/20/2017 1:30 pm - Nurse's Schedule at Main Pqnsqk7110/20 1:30 pm - Iain Carrillo M.D. at Main Sckrbe4610/08/2017 1:30 pm - Iain Carrillo M.D. at Main Wvkdks6910/05/2017 2:30 pm - Iain Carrillo M.D. at Main Hfkrvk2309/22/2017 - Iain Carrillo M.D.G89.4 Chronic pain syndromeNew Medication:Morphine Sulfate ER 60 mgMorphine Sulfate ER 30 mgComments:Based on her insurance formulary, it looks like she really has only one option for using a [place] opioid- morphine, so we will transition her to it using an approximately equianalgesic dose slightly reduced for cross tolerance. She has enough of her short acting Opana for at least 2 weeks, so will hold off on changing this until next ov.Follow up:RTO 2 weeks. As we discussed, continue using Opana ER/ Oxymorphone ER until you run out then switch top the morphine tablets. Continue using the short acting Opana 10mg pills for breakthrough pain as needed.Z79.891 correction (current) use of opiate clicztzzuT07.7 JjgqwflrozgdZ08 Encounter for immunizationComments:Needs form completed for school re MMR vaccine. She has no record of prior MMR. Discussed options oftesting vs vaccination. She prefers just getting vaccinated (again). Understands need for 2 doses (at least 4 weeks apart).
[2017-10-12] MEDS ORDERED: NS 0.9% 1000 ML* 1,000 ML IV ONE (21:19)
[2017-10-12] MEDS ORDERED: Iohexol 350* (CONTRAST) 500 ML MDV IV ONE (21:22)
[2017-10-12 23:07] VITALS: BP 114/72
--- NOTE | 2017-10-13 04:30 | ED ---
Nicole Navarro Emily, scribed for Ashley Galvez MD on 10/12/17 at 2046 . HPI Chest Pain - HPI Summary HPI Summary: This patient is a 37 year old F presenting to [facility] with a chief complaint of intermittent L sided chest pain radiating to L arm that began 3 days ago. The patient rates the pain 9/10 in severity. Symptoms aggravated by nothing. Symptoms alleviated by nothing. Patient reports SOB, headache, back pain ( chronic), and bruising. Patient denies cough, fever, double vision, blurred vision, ear ache, sore throat, abd pain, dysuria, leg swelling, rashes, hematuria, and hematochezia. Pt denies symptoms being similar to chronic pain. Pt denies known . - History of Current Complaint Chief Complaint: EDChestPainROMI Time Seen by Provider: 10/12/17 18:16 Hx Obtained From: Patient Hx Last Menstrual Period: 08/08/2017 Onset/Duration: Started Days Ago, Still Present Timing: Intermittent Initial Severity: Severe Current Severity: Severe Pain Intensity: 9 Pain Scale Used: 0-10 Numeric Chest Pain Location: Left Lateral Chest Pain Radiates: Yes Chest Pain Radiates To:: Arm Aggravating Factor(s): Nothing Alleviating Factor(s): Nothing Associated Signs and Symptoms: Positive: Other: - Positive SOB, headache, back pain (chronic), and bruising. Negative cough, fever, double vision, blurred vision, ear ache, sore throat, abd pain, dysuria, leg swelling, rashes, hematuria, and hematochezia - Allergy/Home Medications Allergies/Adverse Reactions: Allergies Allergy/AdvReac Type Severity Reaction Status Date / Time Aspirin Allergy Hives Verified 10/12/17 17:31 Bee Venom Allergy Anaphylatic Verified 10/12/17 17:31 Shock Codeine Allergy Swelling Verified 10/12/17 17:31 Milk Protein Extract Allergy Vomiting Verified 10/12/17 17:31 Naproxen Allergy Unknown Verified 10/12/17 17:31 Reaction Details Penicillins Allergy Swelling Verified 10/12/17 17:31 Shellfish Allergy Allergy Anaphylatic Verified 10/12/17 17:31 Shock PMH/Surg Hx/FS Hx/Imm Hx Previously Healthy: No Endocrine/Hematology History: Reports: Other Endocrine/Hematological Disorders - Fibromyalgia Musculoskeletal History: Reports: Hx Back Problems Infectious Disease History: No Infectious Disease History: Denies: Traveled Outside the [place] in Last 30 Days - Family History Known Family History: Positive: Cardiac Disease, Hypertension, Diabetes - Social History Occupation: Disabled Lives: With Family Alcohol Use: None Substance Use Type: Reports: None Smoking Status (MU): Never Smoked Tobacco Review of Systems Negative: Fever Negative: Photophobia, Blurred Vision Negative: Sore Throat, Ear Ache Positive: Chest Pain Positive: Shortness Of Breath. Negative: Cough Positive: Other - Negative hematochezia. Negative: Abdominal Pain Negative: dysuria, hematuria Positive: Other - Positive back pain Positive: Bruising. Negative: Rash Positive: Headache All Other Systems Reviewed And Are Negative: No Physical Exam - Summary Physical Exam Summary: Appearance: Alert, conversive, nontoxic appearing Skin: Warm, dry, no mottling, no rashes, no contusions. Little irritation to L chin, slightly tender to palpation. HEENT: EOMI, PERRL, moist mucous membranes Neck: No masses on the neck, supple Respiratory: Clear to auscultation, breath sounds present, no rales, no rhonchi , no wheezes Cardiovascular: RRR, pulses are symmetrical in both lower and upper extremities Abdomen: Soft, non-tender Bowel Sounds: Present Musculoskeletal: No CVA tenderness, no obvious deformity, moving all extremities in a grossly normal manner. Diffuse tenderness Neurological: A&Ox3, CN II-XII Intact, moving all extremities symmetrically Psychiatric: Normal affect and mood Triage Information Reviewed: Yes Vital Signs On Initial Exam: Initial Vitals Temp Pulse Resp BP Pulse Ox 97.2 F 106 16 113/79 99 10/12/17 17:25 10/12/17 17:25 10/12/17 17:25 10/12/17 17:25 10/12/17 17:25 Vital Signs Reviewed: Yes Diagnostics - Vital Signs Vital Signs Temp Pulse Resp BP Pulse Ox 10/12/17 19:30 101 14 110/70 99 10/12/17 19:24 102 119/83 100 10/12/17 19:23 104 100 10/12/17 18:49 98.2 F 100 17 106/70 97 10/12/17 17:25 97.2 F 106 16 113/79 99 - Laboratory Lab Statement: Any lab studies that have been ordered have been reviewed, and results considered in the medical decision making process. - CT CTA Chest CT Interpretation Completed By: Radiologist - CTA chest CT reveals, per radiologist, there is no evidence of pulmonary embolism. The thoracic aorta is normal in course and caliber without dissection. The heart is enlarged. There is no pericardial effusion. There are a few enlarged right hilar lymph nodes measuring up to 1.1 cm in short axis. Dr. Galvez has reviewed this radiology report. - EKG 1737 Cardiac Rate: Tachycardia EKG Rhythm: Sinus Rhythm - 105 BPM EKG Interpretation: Nml QRS and QTC. Non-specific STT waves in inferior leads Re-Evaluation - Re-Evaluation First Eval Re-Evaluation Time: 22:40 Change: Unchanged Comment: Discussed CT results in detail with pt. Chest Pain Course/Dx - Course Assessment/Plan: This patient is a 37 year old F presenting to [facility] with a chief complaint of intermittent L sided chest pain radiating to L arm that began 3 days ago. Physical Exam Findings. Little irritation to left chin, slightly tender to palpation. Diffuse tenderness. An EKG taken at 1737 reveals sinus tachycardia at 105 BPM with normal QRS and QTC with nonspecific STT waves in inferior leads. CTA chest CT reveals, per radiologist, there is no evidence of pulmonary embolism. The thoracic aorta is normal in course and caliber without dissection. The heart is enlarged. There is no pericardial effusion. There are a few enlarged right hilar lymph nodes measuring up to 1.1 cm in short. Discussed CT results in detail with pt. Discussed concern that pt is a heavy smoker and there were multiple nodules in scan. Suggested repeat CT due to suspicion for cancer with follow up with PCP. Pt became very upset that the exact etiology of CP was unknown and requested to leave the hospital. In the ED course the patient was given contrast and fluids. Patient will be discharged with PCP. The patient is agreeable with this plan. - Diagnoses Provider Diagnoses: Chest pain, Lung nodules, Nicotine dependence Discharge - Discharge Plan Condition: Stable Disposition: HOME Patient Education Materials: Chest Pain (ED), How to Stop Smoking (ED), Pulmonary Nodules (ED) Referrals: Iain Carrillo MD [Primary Care Provider] - Additional Instructions: Please discuss with your doctor ways you can stop smoking. Please follow up with your doctor this week. Please show your doctor the CT report of your lungs and discuss the multiple lung nodules. You will need a repeat CT chest in 6 months. Continue to take all medications as previously instructed. Return if worse or any new symptoms. The documentation as recorded by the Nicole brody Emily accurately reflects the service I personally performed and the decisions made by me, Ashley Galvez MD.
--- NOTE | 2017-10-13 06:30 | RAD ---
INDICATION: Chest pain and elevated d-dimer COMPARISON: None TECHNIQUE: Axial source images were acquired following the administration of 76 mL Omnipaque [address] angiographic technique. Coronal and sagittal reconstructed images were constructed and reviewed. FINDINGS: There there are no filling defects in the pulmonary arteries to indicate acute pulmonary embolic disease. Right middle lobe nodule measuring 9 x 5 mm (image 31/61). Left lower lobe nodule measuring 4 mm (image 32). Right middle lobe nodule measuring 4mm (image 26). The heart is normal in size. There is no evidence of pericardial effusion. There is no evidence of aortic aneurysm or dissection. There is a top normal right hilar lymph node measuring 1.1 cm in short axis (image 129). The visualized osseous structures appear normal. Limited views of the upper abdomen show no abnormalities. IMPRESSION: 1. No CT of evidence of pulmonary embolism. 2. Pulmonary nodules measuring up to 7mm in average dimension that can be followed according to the Fleischner Society Criteria. THE RECOMMENDATIONS FOR FOLLOWUP AND MANAGEMENT OF INCIDENTALLY DETECTED MULTIPLE PULMONARY NODULES GREATER THAN OR EQUAL TO 6 MM BUT LESS THAN OR EQUAL TO 8 MM IN SIZE, IN A PATIENT WITHOUT A HISTORY OF MALIGNANCY, INCLUDE FOLLOWUP CT IN 3-6 MONTHS, THEN CONSIDER AGAIN AT 18-24 MONTHS FOR A LOW-RISK PATIENT OR FOLLOWUP CT IN 3-6 MONTHS, THEN AGAIN AT 18-24 MONTHS FOR A HIGH RISK PATIENT. NOTES: SIZE = AVERAGE LENGTH AND WIDTH; HIGH RISK IS DEFINED A HISTORY OF SMOKING OR OTHER KNOW RISK FACTORS FOR LUNG CANCER; LOW RISK IS DEFINED MINIMAL OR ABSENT HISTORY OF SMOKING OR OTHER KNOWN RISK FACTORS. Roldan, H, MERLENE Barry, KAYLEE Cassidy, et al (2017) "Guidelines for Management of Incidental Pulmonary Nodules Detected on CT Images: From the Fleischner Society 2017." Radiology; 284(1): 228-243. doi:10.1148/radiol.4160094242
== END 2017-10-12 23:06 | disposition home or self-care (01) ==
LOC: ED 17:23
DX: R07.9 Chest pain, unspecified (principal); R91.8 Other nonspecific abnormal finding of lung field; R06.02 Shortness of breath; R51 Headache; M54.9 Dorsalgia, unspecified; F17.210 Nicotine dependence, cigarettes, uncomplicated
CPT/HCPCS: 71275; 93005; 99283; Q9967

== ENCOUNTER 2017-10-13 19:30 | Emergency (ER) | payer MEDICARE ==
[2017-10-13 19:35] VITALS: BP 125/76
--- OUTSIDE RECORDS SUMMARY | 2017-10-13 19:50 | XMS REPORT ---
:1980 External Reference #:[id number] Author Organization [facility] Address [address] [place] [address] Phone [phone] Care Team Providers Name Role Phone HCP given Primary Care Physician Unavailable Payers Type Date Identification Numbers Payment Provider Subscriber Medicare Primary Policy Number: [id number] National Govt [employer] PayID: [id number] [address] [place] [address] Problems Date Description Provider Status Onset: 02/28/2015 [...] (~age 28-29). 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 12hrs; for pain G89.4 Oxymorphone 09/29/2017 Active Tablets ER 10mg 30tabs 1 tablet G89.4 Silcoff, HCL ER 12HR daily in the [place], mid M.D. afternoon; for chronic pain Benadryl 09/28/2017 Active Tablets 25mg as directed Unknown Allergy as needed Gabapentin 08/10/2017 Active Capsules 100mg 210caps 2 capsules G25.81 Silcoff, daily in the [place], morning and M.D. afternoon, 3 at night; [...] Tablets 10mg 120tabs 1 by mouth every G89.4 Silcoff, Iain, 6 hours as M.D. needed for pain M79.7 Sumatriptan 02/26/2015 Active Tablets 100mg 6tabs take /2-1 G43.109 Silcoff, Succinate tablet by Iain, mouth [...] , chronic pain; rx Iain 017 due 09/24/17; take M.D. along with a 30mg pill of same medication Morphine Sulfate ER Hx Tablets ER 30mg 28tabs 1 by mouth every G89.4 Silcoff 017 - 12 hours for , chronic pain; rx Aiin, 017 due 09/24/17; take M.D. along with a [...] Silcoff, Pain 10/04/2016 evaluate and .55 sirena Timmons, 1 [place] instruct in hep, modalities prn Buspirone HCL [...] aps 3x/day for .81 Iain restless legs ShayanDEstevan and anxiety F41.1 Replacement Pads 01/27/2016 - [...] Hx Capsules 100mg 90caps 1 tabs by Gerardo, 06/04/2015 mouth three Ely Timmons times a [...] CPT Code Status Date Vaccine Lot # [id number] Given 09/22/2017 MMR Virus Immunization [id number] Given 08/10/2017 Influenza Virus Vaccine, Quadrivalent, Split, [id number] Preservative Free 62290 Given 08/26/2015 Influenza Virus Vaccine, Quadrivalent, Split, [id number] Preservative Free 40384 Given 02/28/2015 Adacel or Boostrix, TDaP [id number] Vital Signs Date Vital Result Comment 10/12/2017 BP Systolic 142 mmHg BP Diastolic 70 mmHg Heart Rate 100 /min reg Respiratory Rate 14 /min not laboured O2 % BldC Oximetry 98 % at rest, 96% w/ ambulation (on R/A) Weight 199.00 lb 09/29/2017 BP Systolic 102 mmHg BP Diastolic [...] Weight 178.00 lb w/shoes Last Menstrual Period [id number] 12/27/2015 BP Systolic 107 mmHg BP Diastolic [...] Test Date Test Result H/L Range Note Laboratory test finding 10/12/2017 Troponin-I (TnI) 0.01 ng/mL <0.04 1 D Dimer Quantitative 359 ng/mL High Less Than 230 2 Comp Metabolic Panel 10/12/2017 Sodium 136 mmol/L 133-145 Potassium 4.2 mmol/L 3.5-5.0 Chloride 105 mmol/L 101-111 Co2 Carbon Dioxide 28 mmol/L 22-32 Anion Gap 3 mmol/L 2-11 Glucose 94 mg/dL 70-100 Blood Urea Nitrogen 9 mg/dL 6-24 Creatinine 0.62 mg/dL 0.51-0.95 BUN/Creatinine Ratio 14.5 8-20 Calcium 9.3 mg/dL 8.6-10.3 Total Protein 7.0 g/dL 6.4-8.9 Albumin 4.0 g/dL 3.2-5.2 Globulin 3.0 g/dL 2-4 Albumin/Globulin Ratio 1.3 1-3 Total Bilirubin 0.30 mg/dL 0.2-1.0 Alkaline Phosphatase 47 U/L 34-104 Alt 14 U/L 7-52 Ast 15 U/L 13-39 Egfr Non- 107.2 >60 Egfr 137.8 >60 3 CBC Auto Diff 10/12/2017 White Blood Count 9.1 10^3/uL 3.5-10.8 Red Blood Count 4.84 10^6/uL 4.0-5.4 Hemoglobin 13.3 g/dL 12.0-16.0 Hematocrit 40 % 35-47 Mean Corpuscular Volume 83 fL 80-97 Mean Corpuscular Hemoglobin 27 pg 27-31 Mean Corpuscular HGB Conc 33 g/dL 31-36 Red Cell Distribution Width 14 % 10.5-15 Platelet Count 291 10^3/uL 150-450 Mean Platelet Volume 8 um3 7.4-10.4 Abs Neutrophils 5.4 10^3/uL 1.5-7.7 Abs Lymphocytes 2.7 10^3/uL 1.0-4.8 Abs Monocytes 0.6 10^3/uL 0-0.8 Abs Eosinophils 0.3 10^3/uL 0-0.6 Abs Basophils 0.1 10^3/uL 0-0.2 Abs Nucleated RBC 0.01 10^3/uL Granulocyte % 59.3 % 38-83 Lymphocyte % 29.6 % 25-47 Monocyte % 6.2 % 1-9 Eosinophil % 3.4 % 0-6 Basophil % 1.5 % 0-2 Nucleated Red Blood Cells % 0.1 Laboratory test finding 10/12/2017 B-Type Natriuretic Peptide BNP 22 pg/mL 4 HCG < 0.60 mIU/mL 5 Urine Drug Screen Inhouse 04/02/2017 Ua Cocaine - Ua Opiates - Ua Amphetamines - Urine Methanphetamines - Urine Benzodiazepines QN [place] - Urine Oxycodone QL + Laboratory test finding 06/25/2016 Troponin-I < 0.015 ng/mL 6, 7 Laboratory test finding 06/25/2016 Troponin-I < 0.015 ng/mL 6, 8 Urine Drug Screen Inhouse 05/27/2016 Ua Cocaine - Ua Opiates - Ua Amphetamines - Urine Methanphetamines - Urine Benzodiazepines QN [place] - Urine Oxycodone QL + Laboratory test finding 02/26/2016 Cytology SEE RESULT BELOW 9 Human Papilloma Virus Rna Negative Negative 10 Urine Drug Screen Inhouse 01/27/2016 Ua Cocaine - Ua Opiates - Ua Amphetamines - Urine Methanphetamines - Urine Benzodiazepines QN [place] - Urine Oxycodone QL + Urine Drug Screen Inhouse 12/17/2015 Ua Cocaine - Ua Opiates - Ua Amphetamines - Urine Methanphetamines - Urine Benzodiazepines QN [place] - Urine Oxycodone QL - Urine Drug Screen Inhouse 10/30/2015 Ua Cocaine _ Ua Opiates _ Ua Amphetamines _ Urine Methanphetamines _ Urine Benzodiazepines QN [place] _ Urine Oxycodone QL _ Urine Drug Screen Inhouse 09/25/2015 Ua Cocaine - Ua Opiates - Ua Amphetamines - Urine Methanphetamines - Urine Benzodiazepines QN [place] - Urine Oxycodone QL + Urine Drug Screen Inhouse 09/10/2015 Ua Cocaine neg Ua Opiates neg Ua Amphetamines neg Urine Methanphetamines neg Urine Benzodiazepines QN [place] neg Urine Oxycodone QL pos Urine Drug Screen Inhouse 07/12/2015 Ua Cocaine - Ua Opiates - Ua Amphetamines - Urine Methanphetamines - Urine Benzodiazepines QN [place] - Urine Oxycodone QL + Urine Drug Screen Inhouse 07/05/2015 Ua Cocaine - Ua Opiates - Ua Amphetamines - Urine Methanphetamines - Urine Benzodiazepines QN [place] - Urine Oxycodone QL + Urinalysis With Microscopic 06/15/2015 Urine Color YELLOW Yellow Urine Clarity CLEAR Clear Urine Glucose - Dipstick NEGATIVE mg/dL Negative Urine Bilirubin - Dipstick NEGATIVE Negative Urine Ketone NEGATIVE mg/dL Negative Urine Specific [place] 1.010 1.010-1.030 Urine Blood MODERATE High Negative Urine PH 6.0 Low 6.5-7.5 Urine Protein - Dipstick NEGATIVE mg/dL Negative Urine Urobilinogen - Dipstick 0.2 E.U./dL 0.2-1.0 Urine Nitrite - Dipstick NEGATIVE Negative Urine Leuk Esterase NEGATIVE Negative Urine RBC 0-2 rbc/hpf 0-2 Urine WBC NONE SEEN wbc/hpf 0-7 Urine Epithelial Cells FEW NONESEEN/lpf Laboratory test finding 06/15/2015 Urine Screen See Note 11 Laboratory test finding 06/15/2015 Act Partial Thrombo 28.4 seconds 23.9- 34.3 12 Time Protime 06/15/2015 Protime 12.8 seconds 12.1-14.9 Inr 0.9 0.9-1.1 13 CBC W/Automated Diff 06/15/2015 White Blood Count [...] % 40.4-72.8 Lymph % 31.1 % 17.0-46.1 [place] % 6.1 % 4.3-13.2 Eo% 2.5 % 0.0-6.6 Bas% 0.5 % 0.0-1.1 Neut# 5.17 K/uL 1.0-7.0 Lymph # 2.69 K/uL 1.8-7.0 [place] # 0.53 K/uL 0.3-0.9 Eos # 0.22 K/uL 0.0-0.5 Baso # 0.04 K/uL 0.0-0.1 Laboratory test finding 06/15/2015 CK 110 U/L 26-192 Troponin-I < 0.015 ng/mL 14 HCG,Serum (Qualitative) NEGATIVE (Negative) Comprehensive Metabolic Panel 06/15/2015 Glucose 90 mg/dL 74-106 BUN 7 mg/dL 7-18 Creatinine 0.7 mg/dL 0.6-1.3 Glom Filtration Rate, Estimate >60 mL/min >60 If >60 mL/min >60 15 BUN/Creat 10.0 ratio Sodium 139 mmol/L 136-145 Potassium 3.5 mmol/L 3.5-5.1 Chloride 106 mmol/L 98-107 Carbon Dioxide 24 mmol/L 21-32 Anion Gap 9 mEq/L 8-16 Calcium 8.6 mg/dL 8.5-10.1 Total Protein 7.4 g/dL 6.4-8.2 Albumin 3.4 g/dL 3.4-5.0 Globulin 4.0 g/dL 1.9-4.3 Alb/Glob 0.9 ratio Bilirubin,Total 0.3 mg/dL 0.2-1.0 Sgot/Ast 8 U/L Low 15-37 16 SGPT/Alt 16 U/L 12-78 Alkaline Phosphatase 53 U/L 45-117 Drugs Of Abuse-Urine Screen 7 06/15/2015 Amphetamines (Urine) Negative Barbiturates (Urine) Negative Benzodiazepines (Urine) Negative Cannabinoids (Urine) POSITIVE High Cocaine Metabolite (Urine) Negative Methadone (Urine) Negative Opiates (Urine) Negative Urine Cutoffs * 17 Urine Drug Screen Inhouse 06/04/2015 Ua Cocaine - Ua Opiates - Ua Amphetamines - Urine Methanphetamines - Urine Benzodiazepines QN [place] - Urine Oxycodone QL + Urine Drug Screen Inhouse 05/07/2015 Ua Cocaine - Ua Opiates - Ua Amphetamines - Urine Methanphetamines - Urine Benzodiazepines QN [place] - Urine Oxycodone QL + Laboratory test finding 02/26/2015 Erythrocyte Sed Rate 24 mm/Hr High 0- 14 C Reactive Protein 1.06 mg/L < 5.00 18 Comp Metabolic Panel 02/26/2015 Sodium 136 mmol/L [...] Egfr Non- 117.6 >60 Egfr 151.3 >60 19 Iron & Iron Binding Capacity 02/26/2015 Iron [...] (Thyroid Stimulating 1.33 IU/mL 0.34-5.60 Horm) 1 STAT HOLD AND CALL , CALL RESULTS TO DR MCCABE [id number] ON TROPONIN AND DDIM LEVELS 2 Please note: The following may produce a false positive D Dimer test: - Rheumatoid factor greater than 60 IU/ml - Plasma hemoglobin greater than 0.05 gm/dl - Bilirubin greater than 50 mg/dl - Lipids greater than 1000 mg/dl - FDP greater than 20 ug/ml 3 Because ethnic data is not always readily [...] 15-29 5 Kidney failure <15 (or dialysis) 4 >100 to <200 pg/mL: likely compensated congestive heart failure (CHF) 200 to 400 pg/mL: likely moderate CHF >400 pg/mL: likely moderate to severe CHF 5 <5.0 Negative 5.0 - 25.0 Indeterminate (Repeat testing recommended after 72 hours) >25.0 Positive Perimenopausal women can display HCG levels of up to 20 mIU/mL 6 CP 7 0.0 - 0.045 ng/mL: Normal 0.046 - 0.5 ng/mL: Suggestive 0.6 - 1.5 ng/mL: Consistent 8 0.0 - 0.045 ng/mL: Normal 0.046 - 0.5 ng/mL: Suggestive 0.6 - 1.5 ng/mL: Consistent 9 SEE RESULT BELOW Name: CINTHIA RAMOS : [address]: Iain Carrillo MD Acct: [id number] Unit: [id number] AGE: 35 Location: [facility] Re02/26/16 SEX: F Status: REG REF SPEC: [id number] YULIA: 02/26/16-1353 [facility] DR: Iain Carrillo MD REQ: [id number] RECD: 02/26/16 STATUS: SOUT _ ORDERED: IMAGE ANALYSIS, HPV/Thin Prep COMMENTS: [id number] FINAL DIAGNOSIS Negative for Intraepithelial lesion or [...] and 68. Signed (signature on file) FLORY Escalera([facility]) 02/26 0345 This Pap test was evaluated with the assistance of the ThinPrep Test Imaging System. Due to cytologic findings at the shotgun shell assembly machine adjuster microscope, comprehensive manual rescreening by a [employer] Garland Maker Hand may be required. The Pap Smear is [...] performed at Main Lab DEPARTMENT OF PATHOLOGY, [address] [place] [address] Armando Roa M.D. Director [facility] # [id number] 10 The high-risk HPV types detected by the assay include: 16, 18, 31, 33, 35, 39, 45, 51, 52, 56, 58, 59, 66, and 68. 11 06/15/15 LAB.[facility] Deleted by [facility] Is patient on anticoagulants? Coumadin QUERY: Anticoagulant Therapy? QUERY: Date of Last Dose: QUERY: Time of Last Dose: 13 THERAPEUTIC INR RANGE: 2.0 - 3.0 DVT, Pulmonary embolus, prophylaxis against venous thrombosis or systemic embolization in high risk patients. 2.5 - 3.5 Mechanical heart valves 14 0.0 - 0.045 ng/mL: Normal 0.046 - 0.5 ng/mL: Suggestive 0.6 - 1.5 ng/mL: Consistent 15 Note: Persistent reduction for 3 months or more in an eGFR <60 mL/min/1.73 m2 defines CKD. Patients with eGFR values >/=60 mL/min/1.73 m2 may also have CKD if evidence of persistent proteinuria is present. The original MDRD equation for estimated GFR is not valid for patients less than 18 years of age. Additional information may be found at www.kdoqi.org. 16 Values below the stated reference ranges of AST and ALT can be seen in normal populations. Clinical correlation is suggested. 17 URINE SPECIMENS ARE SCREENED AT THE LISTED CUTOFFS DRUG CLASS INITIAL TEST LEVEL Amphetamines 1000 ng/mL Barbiturates 200 ng/mL Benzodiazepines 200 ng/mL Cannabinoids 50 ng/mL Cocaine Metabolite 300 ng/mL Methadone 300 ng/mL Opiates 300 ng/mL Any POSITIVE findings are UNCONFIRMED. Confirmatory testing is suggested if findings are unexpected. Please contact laboratory if confirmatory testing is desired. SPECIMENS ARE HELD FOR 72 HOURS. 18 Acute inflammation: >10.00 19 Because ethnic data is not always readily [...] dialysis) Procedures Date CPT Code Description Status 10/12/2017 62115 Oximetry, Multiple Determinations (Eg, During Exercise) Completed 10/12/2017 81611 Electrocardiogram Complete Completed 02/28/2015 05014 SC/Im Injections Completed Encounters Type Date Location Provider CPT E/M Dx Office Visit 10/12/2017 2:30p Main Office Iain Carrillo M.D. 17471 G89.4 Z79.891 R07.9 R06.00 Office Visit 09/29/2017 10:15a Main Office Iain Carrillo M.D. 51683 G89.4 Z79.891 L50.8 T40.2x5A Office Visit 09/22/2017 3:30p Main Office Iain Carrillo M.D. 95441 G89.4 Z79.891 M79.7 Z23 Z71.89 Office Visit 08/10/2017 4:45p Main Office Iain Carrillo M.D. 63629 G89.4 Z79.891 M79.7 F41.1 F34.1 G25.81 L81.9 K21.9 Z23 Office Visit 06/11/2017 2:00p Main Office Iain Carrillo M.D. 85044 G89.4 Z79.891 M79.7 F41.1 F34.1 Office Visit 04/02/2017 10:15a Main Office Iain Carrillo M.D. 55166 G89.4 Z79.891 M79.7 F41.1 F34.1 G25.81 J30.9 H10.13 Office Visit 02/01/2017 2:30p Main Office Iain Carrillo M.D. 63090 G89.4 Z79.891 M79.7 F41.1 F34.1 G25.81 Office Visit 12/08/2016 1:30p Main Office Iain Carrillo M.D. 18345 G89.4 F41.1 F34.1 M79.7 Z79.891 G25.81 A09 L65.9 Office Visit 10/05/2016 11:15a Main Office Iain Carrillo M.D. 67805 F34.1 F41.1 G89.4 M79.7 Z79.891 Office Visit 07/28/2016 9:45a Main Office Iain Carrillo M.D. 92722 L29.0 G89.4 M79.7 G25.81 J20.9 R06.2 F34.1 F41.1 F17.210 Office Visit 07/23/2016 1:15p [place] [address] R06.2 F17.210 J20.9 Office Visit 05/27/2016 10:15a Main Office Iain Carrillo M.D. 73287 G89.4 M25.551 G25.81 M79.7 G47.00 Z79.891 F17.210 Z71.6 Office Visit 03/27/2016 2:30p Main Office Iain Carrillo M.D. 53437 G89.4 M79.7 G25.81 F41.1 G47.00 Z79.891 Office Visit 02/26/2016 10:15a Main Office Iain Carrillo M.D. 15576 G89.4 M79.7 G25.81 F41.1 R53.83 G47.00 K21.9 Z79.891 Z01.419 Z12.4 Office Visit 01/27/2016 10:45a Main Office Iain Carrillo M.D. 71509 G89.4 M79.7 G25.81 F41.1 R53.83 R14.2 R12 M25.561 Z79.891 Office Visit 12/17/2015 8:45a Main Office Iain Carrillo M.D. 57140 G89.4 M25.561 S83.421A M79.7 G25.81 F41.1 Office Visit 10/30/2015 4:15p Main Office Iain Carrillo M.D. 36453 G89.4 M79.7 G25.81 F41.1 H53.8 Office Visit 09/25/2015 11:30a Main Office Iain Carrillo M.D. 62549 G89.4 M79.7 G25.81 F41.1 Z79.891 Office Visit 08/26/2015 2:30p Main Office Iain Carrillo M.D. 14512 G89.4 Z79.891 F41.1 G25.81 M79.7 L29.9 Z23 Z41.8 Office Visit 07/26/2015 10:30a Main Office Iain Carrillo M.D. 71414 G89.4 Z79.891 F41.1 G25.81 M79.7 J20.9 Office Visit 07/12/2015 11:15a Main Office Iain Carrillo M.D. 73468 G89.4 Z79.891 F41.1 G25.81 M79.7 Office Visit 07/05/2015 2:30p Main Office Iain Carrillo M.D. 64414 G89.4 Z79.891 Office Visit 06/04/2015 11:15a Main Office Iain Carrillo M.D. 32077 338.4 V58.69 346.00 742.9 Office Visit 05/07/2015 11:30a Main Office Iain Carrillo M.D. 82267 338.4 784.2 709.9 346.00 V58.69 Office Visit 04/08/2015 1:15p Main Office Iain Carrillo M.D. 11657 338.4 729.1 719.46 346.00 300.00 Office Visit 03/08/2015 9:30a Main Office Iain Carrillo M.D. 44943 729.1 338.4 723.1 719.46 Office Visit 02/28/2015 9:30a Main Office Shukri Clemons D.O. 23448 723.1 729.1 729.2 v06.1 v07.2 728.85 Office Visit 02/26/2015 2:00p Main Office Iain Carrillo M.D. 40846 338.4 729.1 346.00 246.9 333.94 729.2 Plan of Care Future Appointment(s):10/20/2017 1:30 pm - Nurse's Schedule at Main Kjface3110/20 1:30 pm - Iain Carrillo M.D. at Main Imofzn4010/12/2017 - Iain Carrillo M.D.G89.4 Chronic pain rzxajqnuY11.891 skilled nursing (current) use of opiate wasrwlftwM61.9 Chest pain, unspecifiedComments:CP NYD w/ assoc SOBOE. Discussed ER now vs labs then decide and she opoted for the latter. She was sent directly to [facility] lab for blood tests, understanding if D-dimer or Troponin are elevated she will need to go to ER for further eval. ~U_Addendum 10/12/17 6: 40pm~u_: I have not yet been called by the lab, but noted that labs are back, D- Dimer is elevated (359)but others all unremarkable incl normal troponin 0.01. I tried calling pt repeatedly to have her got to ER but her phone goes straight to message wc states her vm can't take messages. I sent her a text asking her to call me PARMJIT.~U_Addendum 10/12/17 11:23pm~u_: I tried calling pt a couple of more times this evening, same result. I recently checked her chart and noted a CCD from [facility] ER, obvious pt was seen there and D/C'd after having a CTR06.00 Dyspnea, unspecified
== END 2017-10-13 19:54 | disposition left against medical advice (07) ==
LOC: ED 19:30
DX: R07.9 Chest pain, unspecified (principal); Z53.21 Procedure and treatment not carried out due to patient leaving prior to being seen by health care provider
CPT/HCPCS: 93005

== ENCOUNTER 2019-03-16 06:16 | Day surgery (SDC) | payer MEDICARE, MEDICAID ==
[~2019-03-16 06:16] MED LIST: Buffered Lidocaine 1% SYRIN* 1 ML/SYRINGE INTRADERM ONE; Lactated Ringers 1000 ML Bag* 1,000 ML IV SCH
[2019-03-16] MEDS ORDERED: Buffered Lidocaine 1% SYRIN* 1 ML/SYRINGE INTRADERM ONE (06:57)
[2019-03-16] MEDS ORDERED: fentaNYL* 50 MCG/ML 2 ML VIAL (100 MCG VIAL) ONE (07:45)
[2019-03-16] MEDS ORDERED: Midazolam* 1 MG/ML 5 ML VIAL (5 MG) ONE (07:46)
[2019-03-16] MEDS ORDERED: Propofol* 10 MG/ML 20 ML BTL ONE (07:50)
[2019-03-16] MEDS ORDERED: Naloxone* 0.4 MG/ML 1 ML VIAL IV PRN (07:56)
[2019-03-16] MEDS ORDERED: Acetaminophen TAB* 325 MG PO PRN (07:56)
[2019-03-16] MEDS ORDERED: Ibuprofen TAB* 600 MG PO PRN (07:56)
[2019-03-16] MEDS ORDERED: Ondansetron INJ* 2 MG/ML VIAL IV PRN (07:56)
[2019-03-16] MEDS ORDERED: Levalbuterol HFA INHALER* 1 PUFF MDI ONE (08:45)
[2019-03-16] MEDS ORDERED: Levalbuterol 1.25MG/0.5ML NEB ONE (08:45)
[2019-03-16] MEDS ORDERED: Levalbuterol 1.25MG/0.5ML NEB INH ONE (08:58)
[2019-03-16 09:17] VITALS: BP 122/83
--- NOTE | 2019-03-16 11:05 | PRO ---
CC: Iain Carrillo MD* ESOPHAGOGASTRODUODENOSCOPY REPORT: DATE OF PROCEDURE: 03/16/19 PRIMARY CARE PHYSICIAN: Iain Carrillo MD INDICATION FOR PROCEDURE: Epigastric pain, dysphagia. PROCEDURE PERFORMED: Complete esophagogastroduodenoscopy with biopsies. MEDICATIONS GIVEN: Please see anesthesia record. DESCRIPTION OF PROCEDURE: After the EGD procedure including the risks, benefits , and alternatives, with the risk not limited to perforation surgery, missed lesions and/or were explained to the patient, written consent was obtained , IV medication was given and a bite block was placed between the teeth. The adult Olympus gastroscope was then inserted into the patient's oropharynx into the tubular esophagus. The tubular esophagus was grossly normal in appearance; however, there was a slight prominence to the aortic arch. In addition, there was a small 1 cm hiatal hernia. There is very mild GE junction variability. I did take biopsies a little bit above the junction to rule out eosinophilic esophagitis. The scope was then advanced through the lower esophageal sphincter into the stomach. The stomach had mild antral predominant gastritis. This was biopsied for CLOtesting. On retroflexion, the views were grossly normal except for the small aforementioned sliding hiatal hernia. The scope was then advanced through the widely patent pylorus into the duodenal bulb, C-loop, and distal duodenum. There is very mild duodenitis within the bulb. Biopsies were taken. The scope was then removed from the patient. She tolerated the procedure well. She returned to the recovery room in stable condition. IMPRESSION: 1. Complete esophagogastroduodenoscopy with biopsies. 2. Mild gastritis. 3. Mild duodenitis. 4. Small sliding hiatal hernia. RECOMMENDATIONS: No etiology for the patient's episodic abdominal pain have been identified. She states that she has had no change in her symptomatology after starting Nexium and I do not see evidence of significant erosive esophagitis. We will discontinue the Nexium. I am not sure if this pain is GI in nature. If she is having ongoing symptoms, could consider esophageal manometry to rule out esophageal spasm; however, this can be the difficult to detect. I believe the pill dysphagia is likely related to her small sliding hiatal hernia. We will await the results of the biopsies and have patient follow up with her primary care physician. [id number]/[facility] #: [id number] [facility]
== END 2019-03-16 09:37 | disposition home or self-care (01) ==
LOC: OR 06:16
PROVIDERS: ATTEND Internal Medicine Gastroenterology
DX: K29.60 Other gastritis without bleeding (principal); K44.9 Diaphragmatic hernia without obstruction or gangrene; K29.80 Duodenitis without bleeding; R10.13 Epigastric pain; K21.9 Gastro-esophageal reflux disease without esophagitis; R13.14 Dysphagia, pharyngoesophageal phase; K59.00 Constipation, unspecified; J45.909 Unspecified asthma, uncomplicated; F17.210 Nicotine dependence, cigarettes, uncomplicated
CPT/HCPCS: 87077; 88305; A9270-GY; J2250; J2704; J3010

== ENCOUNTER 2019-11-08 11:22 | Emergency (ER) | payer MEDICARE, MEDICAID ==
--- OUTSIDE RECORDS SUMMARY | 2019-11-08 11:43 | XMS REPORT | Continuity of Care Document ---
:1980 External Reference #:[id number] Author Name Iain Carrillo M.D. Address [address] [facility] [address] [place] [address] Care Team Providers Name Role Phone HCP given Care Team Information Film Reader Unavailable Roberta Cyr MD [facility] - Dermatology Care Team Information Film Reader [facility], Care Team Information Film Reader [facility] - Care Team Information Film Reader [phone] Gastroenterology Problems Active Problems Provider Date Neck pain Shukri Clemons D.O. Onset: 02/28/2015 Neuralgia Shukri Clemons D.O. Onset: 02/28/2015 Chronic pain syndrome Iain Carrillo M.D. Onset: 07/12/2015 Generalized anxiety disorder Iain Carrillo M.D. Onset: 07/12/2015 Restless legs Iain Carrillo M.D. Onset: 07/12/2015 Fibromyalgia Iain Carrillo M.D. Onset: 07/12/2015 Gastroesophageal reflux disease Iain Carrillo M.D. Onset: 08/10/2017 Asthma Haley Vinson PA Onset: 07/11/2019 Posttraumatic stress disorder Haley Vinson PA Onset: 07/11/2019 Bilateral carpal tunnel syndrome Iain Carrillo M.D. Onset: 08/02/2019 Social History Type Date Description Comments Sex Unknown Tobacco Use Reviewed: 07/11/19 current cigarette smoker ~1ppd. Hoping to quit winter 2018. Smoking Status Reviewed: 07/11/19 current cigarette smoker ~1ppd. Hoping to quit winter 2018. Tobacco Use Start: Unknown Patient is a current smoker, smokes every day Sun Exposure Uses sunscreen Seat Belt/Car Seat Seat Belt Use - Yes Allergies, Adverse Reactions, Alerts Active Allergies Reaction Severity Comments Date Penicillins throat swelling 02/26/2015 Naproxen hives 02/26/2015 Latex rash 02/26/2015 Adhesives rash/burn skin 02/26/2015 Shellfish-derived Products "my throat closes" 04/08/2015 Benzonatate numbs throat 07/22/2016 Morphine Urticaria 09/29/2017 Medications Active Medications SIG Qnty Indications Ordering Date Provider Hair Skin And Nails one po daily Unknown 10/30/2019 Formula Tablets Chantix 1/2 pill once/day 60tabs F17.210 Iain Carrillo, 08/02/2019 1mg Tablets x3 days then 1/2 M.D. pill 2x/day for 4 days then 1 pill twice daily; to help quit smoking; start 1wk prior to your quit date PT For Mixed (Stress evaluate and N39.46 Iain Carrillo, 08/02/2019 And Urge) Urinary treat, instruct M.D. Incontinence in hep Breo Ellipta take 1 puff by 60units J45.21 Iain Carrillo, 07/11/2019 mouth every day, M.D. 200-25mcg/Inh Aerosol rinse mouth after use Oxymorphone HCL ER 1 by mouth daily 30tabs G89.4 Iain Carrillo, 2018 in the afternoon; M.D. 7.5mg Tablets ER 12HR for chronic pain Wrist Immobilizer For use as directed 2units G56.03 Iain Carrillo, 02/03 Both Hands For CTS (for carpal M.D. tunnel syndrome) Oxymorphone HCL ER 2 tabs by mouth 120tabs Iain Carrillo, 11/05/2018 15mg twice a day for M.D. Tablets ER 12HR chronic pain Gabapentin 1 cap by mouth 30caps G25.81 Iain Carrillo, 02/14/2018 400mg every evening for M.D. Capsules restless legs F41.1 Gabapentin 2 capsules daily in 180caps G25.81 Iian Carrillo, 02/08/2018 100mg the morning and M.D. Capsules afternoon; take 2 more at night if needed; for restless legs and anxiety F41.1 Benzoyl apply to 46.6units L70.9 Gerardo, 01/05/2018 Peroxide-Erythromycin affected areas Ely Timmons 5-3% Gel on face twice a day; for acne Benadryl Allergy as directed as Unknown 09/28/2017 25mg Tablets needed Buspirone HCL Take One Tablet 90tabs F41.1 Gerardo, 06/11/2017 15mg Tablets By Mouth Three Ely Timmons Times A Day For Anxiety Cetirizine HCL 1 by mouth every 30tabs J30.9 Gerardo, 04/02/2017 10mg Tablets day as needed Ely Timmons for allergies Escitalopram Oxalate Take One Tablet 30tabs F34.1 Gerardo, 10/05/2016 20mg Tablets By Mouth Every Ely Timmons Day For Mood F41.1 Ventolin HFA 2 puffs q4-6 hours as 18gm J20.9 Iain Carrillo, 07/23/2016 108(90Base) needed M.D. mcg/Act Aerosol Albuterol Sulfate 1 unit inhaled four 90ml J20.Iain Escobar, 2015 times a day as needed M.D. (2.5mg/3ML) 0.083% for cough or Nebulizer shortness of breath R06.2 Opana 1 by mouth every 6 120tabs G89.4 Iain Carrillo M.D. 03/08/2015 10mg Tablets hours as needed for pain M79.7 Sumatriptan Succinate take 1/2-1 tablet 6tabs G43.109 Iain Carrillo, 02/2015 100mg by mouth at first M.D. Tablets sign of migraine; may repeat in 2 hours if migraine partially relieved; max 3x/wk Cyclobenzaprine HCL Take One Tablet By 90tabs G89.4 Iain Carrillo, 02/25 10mg Mouth Three Times M.D. Tablets A Day as Needed For Muscle Spasms M79.7 History Medications Azithromycin 2 tabs by mouth 6tabs J20.9 Iain Carrillo, 07/11/2019 - 250mg daily x1 day M.DEstevan 08/01/2019 Tablets then 1 tab by mouth daily x4 days J01.90 Prednisone 1 by mouth every 5tabs J45.21 Greardo, 07/08/2019 - 50mg day x5 days for Ely Timmons 07/13/2019 Tablets asthma exacerbation Symbicort 2 puffs 2x/day; 2samples J45.21 Gerardo, 07/07/2019 - gargle after use; Ely Timmons 07/11/2019 160-4.5mcg/Act for acute Aerosol bronchitis Medications Administered in Office Medication SIG Qnty Indications Ordering Provider Date Toradol 15MG. Shukri Clemons D.O. 02/28/2015 Injection SC/Im Injections Shukri Clemons D.O. 02/28/2015 Injection Immunizations CPT Code Status Date Vaccine Lot # [id number] Given 08/02/2019 Influenza Virus Vaccine, Quadrivalent, Split, [id number] Preservative Free 20431 Given 09/30/2018 Influenza Virus Vaccine, Quadrivalent, Split, [id number] Preservative Free 16002 Given 09/22/2017 MMR Virus Immunization [id number] 21050 Given 08/10/2017 Influenza Virus Vaccine, Quadrivalent, Split, [id number] Preservative Free 04735 Given 08/26/2015 Influenza Virus Vaccine, Quadrivalent, Split, [id number] Preservative Free 35865 Given 02/28/2015 Adacel or Boostrix, [id number] Vital Signs Date Vital Result Comment 10/31/2019 11:38am BP Systolic 112 mmHg BP Diastolic 70 mmHg Height 69.5 inches 5'9.50"w/shoes Weight 207.50 lb w/shoes BMI (Body Mass Index) 30.2 kg/m2 08/02/2019 10:24am BP Systolic 112 mmHg BP Diastolic 68 mmHg Weight 192.50 lb Results Description No Information Available Procedures Date Code Description Status 07/08/2019 18019 Oximetry, Single Completed 07/08/2019 25773 Inhalation Therapy Completed Medical Devices Description No Information Available Encounters Type Date Location Provider Dx Diagnosis Office Visit 10/31/2019 Main Office Iain Carrillo, G89.4 Chronic pain 11:15a M.D. 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 10/31/2019 F17.210 Nicotine dependence, cigarettes, Iain Carrillo M.D. uncomplicated 10/31/2019 G25.81 Restless legs syndrome Iain Carrillo M.D. 10/31/2019 M79.7 Fibromyalgia Iain Carrillo M.D. 10/31/2019 F34.1 Dysthymic disorder Iain Carrillo M.D. 10/31/2019 F41.1 Generalized anxiety disorder Iain Carrillo M.D. 10/31/2019 N39.46 Mixed incontinence Iain Carrillo M.D. 10/31/2019 Z68.30 Body mass index (BMI) 30.0-30.9, adult Iain Carrillo M.D. 08/02/2019 F17.210 Nicotine dependence, cigarettes, Iain Carrillo M.D. uncomplicated 08/02/2019 G89.4 Chronic pain syndrome Iain Carrillo M.D. 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 08/02/2019 G56.03 Carpal tunnel syndrome, bilateral upper Iain Carrillo M.D. limbs 08/02/2019 G25.81 Restless legs syndrome Iain Carrillo M.D. 08/02/2019 M79.7 Fibromyalgia Iain Carrillo M.D. 08/02/2019 F34.1 Dysthymic disorder Iain Carrillo M.D. 08/02/2019 F41.1 Generalized anxiety disorder Iain Carrillo M.D. 08/02/2019 N39.46 Mixed incontinence Iain Carrillo M.D. 08/02/2019 Z23 Encounter for immunization Iain Carrillo M.D. 08/02/2019 J45.21 Mild intermittent asthma with (acute) Iain Carrillo M.D. exacerbation 07/11/2019 J20.9 Acute bronchitis, unspecified Haley Vinson PA 07/11/2019 J45.21 Mild intermittent asthma with (acute) Haley Vinson PA exacerbation 07/11/2019 J01.90 Acute sinusitis, unspecified Haley Vinson PA 07/08/2019 J45.21 Mild intermittent asthma with (acute) Iain Carrillo M.D. exacerbation 07/08/2019 R06.00 Dyspnea, unspecified Iain Carrillo M.D. 07/08/2019 G89.4 Chronic pain syndrome Iain Carrillo M.D. 07/08/2019 M54.2 Cervicalgia Iain Carrillo M.D. 07/08/2019 Z79.891 long-term (current) use of opiate analgesic Iain Carrillo M.D. 07/08/2019 F17.210 Nicotine dependence, cigarettes, Iain Carrillo M.D. uncomplicated Plan of Treatment 06/30/2018 - Haley Vinson, PAB37.0 Candidal stomatitisNew Medication:Nystatin 383296 Unit/ML - 5ml by mouth (swish and spit) four times a day x7 daysComments: Rx for Nystatin oral solution (swish and spit). Discussed proper wear and cleaning of dentures. Recheck if sx not improving.R53.83 Other fatigueComments: Labs as below. Pt has f/u appt next month. Functional Status Description No Information Available Mental Status Description No Information Available Referrals Description No Information Available
[2019-11-08] MEDS ORDERED: NS 0.9% 1000 ML** 1,000 ML IV ONE ×2 (11:58→13:27)
--- NOTE | 2019-11-08 11:58 | ED ---
Abdominal Pain/Female - HPI Summary HPI Summary: 39 y/o female presented to [facility] for RUQ abd pain present since 0900 after she went into work today. She notes chills, but denies burning while urinating. She has eaten since onset of symptoms and states that this has not worsened the pain. She notes that this is the first time she has had this pain. She states Hx of renal calculi but no gallstones, multiple C-sections, chronic tachycardia , and degeneration of the sacrum. Pt denies Hx of diabetes, HTN, alcohol use, ulcers, or excessive use of aspirin or Motrin. She currently smokes toacco. LNMP is now. - History of Current Complaint Chief Complaint: EDAbdPain Stated Complaint: RIGHT SIDE ABD PAIN Time Seen by Provider: 11/08/19 11:51 Hx Obtained From: Patient Hx Last Menstrual Period: 08/08/2017 Onset/Duration: Lasting Hours, Still Present Severity Currently: Severe Pain Intensity: 10 Pain Scale Used: 0-10 Numeric Location: Discrete At: RUQ Aggravating Factor(s): Other: - negative - oral intake Alleviating Factor(s): Nothing Associated Signs and Symptoms: Positive: Other: - positive - chills. Negative: Urinary Symptoms - negative - burning while urinating Allergies/Adverse Reactions: Allergies Allergy/AdvReac Type Severity Reaction Status Date / Time Adhesive Tape Allergy BLISTERING, Verified 11/08/19 11:26 THOMPSON aspirin Allergy Hives Verified 11/08/19 11:26 benzonatate Allergy Unknown Verified 11/08/19 11:26 Reaction Details codeine Allergy Swelling Verified 11/08/19 11:26 iodine Allergy Blisters Verified 11/08/19 11:26 latex Allergy Rash Verified 11/08/19 11:26 milk Allergy Vomiting Verified 11/08/19 11:26 morphine Allergy Hives Verified 11/08/19 11:26 naproxen Allergy HIVES AND Verified 11/08/19 11:26 CONSTIPATION Penicillins Allergy Swelling Verified 11/08/19 11:26 povidone-iodine Allergy Blisters Verified 11/08/19 11:26 [From Betadine] shellfish derived Allergy ANAPHYLACTI Verified 11/08/19 11:26 C soap [From Betadine] Allergy Blisters Verified 11/08/19 11:26 'cillins Allergy Severe anaphylaxis Uncoded 11/08/19 11:26 BEES Allergy ANAPHYLACTI Uncoded 11/08/19 11:26 C Home Medications: Home Medications Albuterol 2.5MG/3ML (0.083%)* [Ventolin 2.5 MG/3 ML NEB.JORGE*] 2.5 mg INH QID PRN 11/08/19 [History Confirmed 11/08/19] Cetirizine* [ZyrTEC 10 MG TAB*] 10 mg PO DAILY PRN 11/08/19 [History Confirmed 11/08/19] Erythromycin/Benzoyl Peroxide [Benzamycin 5-3 %] 1 applic TOPICAL BID 11/08/19 [ History Confirmed 11/08/19] Escitalopram * [Lexapro *] 20 mg PO DAILY 11/08/19 [History Confirmed 11/08/19] Fluticasone/Vilanterol [Breo Ellipta 200-25 Mcg INH] 1 each INH DAILY 11/08/19 [ History Confirmed 11/08/19] Oxymorphone ER (NF) [Opana ER (NF)] 7.5 mg PO DAILY 11/08/19 [History Confirmed 11/08/19] Oxymorphone ER (NF) [Opana ER (NF)] 30 mg PO BID 11/08/19 [History Confirmed ] SUMAtriptan TAB* [Imitrex TAB*] 50 - 100 mg PO ONCE PRN MDD 3x/week 11/08/19 [ History Confirmed 11/08/19] Varenicline (NF) [Chantix 1 MG TAB (NF)] 1 mg PO BID 11/08/19 [History Confirmed 11/08/19] diPHENhydraMINE PO* [Benadryl PO 25 MG TAB*] 25 mg PO Q6H PRN 11/08/19 [History Confirmed 11/08/19] PMH/Surg Hx/FS Hx/Imm Hx Endocrine/Hematology History: Reports: Other Endocrine/Hematological Disorders - Fibromyalgia Denies: Hx Diabetes Cardiovascular History: Reports: Other Cardiovascular Problems/Disorders - REPORTS IS HAVING LOW BLOOD PRESSURE Denies: Hx Hypertension Respiratory History: Reports: Hx Asthma - PRN INHALER Denies: Other Respiratory Problems/Disorders GI History: Reports: Hx Gastroesophageal Reflux Disease - ON MEDICATION Denies: Other GI Disorders History: Reports: Hx Kidney Stones - HX OF DURING Denies: Hx Renal Disease, Other Problems/Disorders Musculoskeletal History: Reports: Hx Back Problems, Hx Bursitis - BILATERAL HIPS Sensory History: Reports: Hx Contacts or Glasses - DRIVING AND READING GLASSES Denies: Hx Hearing Aid Opthamlomology History: Reports: Hx Contacts or Glasses - DRIVING AND READING GLASSES Neurological History: Reports: Other Neuro Impairments/Disorders - SPOT ON BRAIN SINCE CHILDHOOD-HAS SEEN DR. LONGO IN THE PAST Psychiatric History: Reports: Hx Anxiety - COUNSELING IN THE PAST-ON MEDICATION FOR, Hx Depression - COUNSELING IN THE PAST-ON MEDICATION FOR - Surgical History Surgery Procedure, Year, and Place: 4 C-SECTIONS. URETERAL STENTS PLACED Hx Anesthesia Reactions: No Infectious Disease History: No Infectious Disease History: Denies: Traveled Outside the [place] in Last 30 Days - Family History Known Family History: Positive: Cardiac Disease, Hypertension, Diabetes - Social History Alcohol Use: Occasionally Substance Use Type: Reports: Marijuana Substance Use Comment - Amount & Last Used: OCCASIONALLY TO HELP WITH SLEEP PER PATIENT Smoking Status (MU): Heavy Every Day Tobacco Smoker Amount Used/How Often: 1/2 PPD X 20 YEARS Have You Smoked in the Last Year: Yes Review of Systems Positive: Chills Positive: Abdominal Pain Negative: burning All Other Systems Reviewed And Are Negative: Yes Physical Exam - Summary Physical Exam Summary: Constitutional: Well-developed, Well-nourished, Alert. (-) Distressed Skin: Warm, Dry HENT: Normocephalic; Atraumatic Eyes: Conjunctiva normal Neck: Musculoskeletal ROM normal neck. (-) JVD, (-) Stridor, (-) Tracheal deviation Cardio: Rhythm regular, rate normal, Heart sounds normal; Intact distal pulses; The pedal pulses are 2+ and symmetric. Radial pulses are 2+ and symmetric. (-) Murmur Pulmonary/Chest wall: Effort normal. (-) Respiratory distress, (-) Wheezes, (-) Rales Abd: Soft, (+) RUQ tenderness, (-) Distension, (-) Guarding, (-) Rebound, positive Rico's Sign Musculoskeletal: (-) Edema Lymph: (-) Cervical adenopathy Neuro: Alert, Oriented x3 Psych: Mood and affect Normal Triage Information Reviewed: Yes Vital Signs On Initial Exam: Initial Vitals Temp Pulse Resp BP Pulse Ox 97.5 F 105 14 134/86 98 11/08/19 11:22 11/08/19 11:22 11/08/19 11:22 11/08/19 11:22 11/08/19 11:22 Vital Signs Reviewed: Yes Procedures - Sedation Patient Received Moderate/Deep Sedation with Procedure: No Diagnostics - Vital Signs Vital Signs Temp Pulse Resp BP Pulse Ox 11/08/19 11:22 97.5 F 105 14 134/86 98 - Laboratory Result Diagrams: 11/08/19 12:05 11/08/19 12:05 Lab Statement: Any lab studies that have been ordered have been reviewed, and results considered in the medical decision making process. - CT abd/pel CT Interpretation Completed By: Radiologist Summary of CT Findings: IMPRESSION: 1. LEFT NEPHROLITHIASIS WITHOUT HYDRONEPHROSIS. 2. NORMAL APPENDIX. This report was reviewed by the ED physician. - Ultrasound abdomen Ultrasound Interpretation Completed By: Radiologist Summary of Ultrasound Findings: IMPRESSION: NEGATIVE EXAM. This report was reviewed by the ED physician. Abdominal Pain Fem Course/Dx - Course Course Of Treatment: 39 y/o female presented to [facility] for RUQ abd pain present since 0900 after she went into work today. She notes chills, but denies burning while urinating. She has eaten since onset of symptoms and states that this has not worsened the pain. She notes that this is the first time she has had this pain. Exam found RUQ tenderness and positive [place] sign. Bloodwork showed Glc H and AST L. CT abd/pel showed 1. LEFT NEPHROLITHIASIS WITHOUT HYDRONEPHROSIS. 2. NORMAL APPENDIX. US abdomen was negative. Pt was given 4mg IV Morphine, 4mg IV Zofran, and 2L IV NaCl. Pt was diagnosed with abdominal pain and discharged to home. - Diagnoses Provider Diagnoses: Abdominal pain Discharge ED - Sign-Out/Discharge Documenting (check all that apply): Patient Departure - dc - Discharge Plan Condition: Stable Disposition: HOME Patient Education Materials: Abdominal Pain (ED) Referrals: Iain Carrillo MD [Primary Care Provider] - Additional Instructions: Follow up with your primary care physician in 1-2 days. If you experience new or worsening symptoms please return to the ER. - Attestation Statements Document Initiated by Scribe: Yes Documenting Scribe: Mikey Ayala Provider For Whom Scribe is Documenting (Include Credential): Davide Wilson, Scribe Attestation: Mikey Navarro, scribed for Davide Wilson DO on 11/08/19 at 1739. Status of Scribe Document: Ready
[2019-11-08 12:15] LABS: ABS Basophils 0.1 10^3/ul (0-0.2); ABS Eosinophils 0.2 10^3/ul (0-0.6); ABS Lymphocytes 2.7 10^3/ul (1.0-4.8); ABS Monocytes 0.4 10^3/ul (0-0.8); ABS Neutrophils 4.3 10^3/ul (1.5-7.7); Eosinophil % 2.8 %; Hematocrit 36 % (35-47); Mean Corpuscular HGB Conc 33 g/dL (31-36); Mean Corpuscular Hemoglobin 28 pg (27-31); Mean Corpuscular Volume 86 fL (80-97); Mean Platelet Volume 7.9 fL (7.4-10.4); Nucleated Red Blood Cells % 0.2; Platelet Count 291 10^3/uL (150-450); Red Blood Count 4.23 10^6 /uL (3.70-4.87); Red Cell Distribution Width 14 % (10-15); White Blood Count 7.7 10^3/uL (3.5-10.8)
[2019-11-08 12:34] LABS: ALT 10 U/L (7-52); AST 12 U/L (13-39); Albumin 3.8 g/dL (3.2-5.2); Albumin/Globulin Ratio 1.3 (1-3); Alkaline Phosphatase 56 U/L (34-104); Anion Gap 7 mmol/L (2-11); BUN/Creatinine Ratio 9.9 (8-20); Blood Urea Nitrogen 7 mg/dL (6-24); CO2 Carbon Dioxide 22 mmol/L (22-32); Calcium 8.8 mg/dL (8.6-10.3); Chloride 109 mmol/L (101-111); EGFR African American 109.8 (>60); EGFR Non-African American 90.7 (>60); Globulin 2.9 g/dL (2-4); Glucose 111 mg/dL (70-100); Potassium 3.8 mmol/L (3.5-5.0); Sodium 138 mmol/L (135-145); Total Protein 6.7 g/dL (6.4-8.9)
[2019-11-08 12:40] LABS: HCG Pregnancy < 0.60 mIU/mL
[2019-11-08] MEDS ORDERED: Ondansetron INJ* 2 MG/ML VIAL IV ONE (13:27)
[2019-11-08] MEDS ORDERED: Morphine 4 MG/ML VIAL (1 ml) 4 MG/ML VIAL IV ONE (13:27)
[2019-11-08 15:07] LABS: C Reactive Protein 3.36 mg/L (<8.01)
[2019-11-08 15:59] VITALS: BP 126/74
== END 2019-11-08 15:58 | disposition home or self-care (01) ==
LOC: ED 11:22
DX: R10.11 Right upper quadrant pain (principal); R68.83 Chills (without fever); N20.0 Calculus of kidney; Z87.442 Personal history of urinary calculi; M79.7 Fibromyalgia; J45.909 Unspecified asthma, uncomplicated; K21.9 Gastro-esophageal reflux disease without esophagitis; Z88.6 Allergy status to analgesic agent; Z88.3 Allergy status to other anti-infective agents; Z91.030 Bee allergy status; Z91.040 Latex allergy status; Z91.011 Allergy to milk products; Z88.5 Allergy status to narcotic agent; Z88.0 Allergy status to penicillin; Z91.013 Allergy to seafood; Z88.8 Allergy status to other drugs, medicaments and biological substances; Z91.048 Other nonmedicinal substance allergy status; F41.9 Anxiety disorder, unspecified; F32.9 Major depressive disorder, single episode, unspecified; F17.200 Nicotine dependence, unspecified, uncomplicated
CPT/HCPCS: 36415; 74176; 76705; 80053; 83690; 84702; 85025; 85652; 86140; 96361; 96374; 96375; 99282; J2270; J2405